=== PATIENT | male | born 1955 | race Two or more races ===

== ENCOUNTER 2019-04-18 11:34 | Inpatient (IN) | payer MEDICAID, SELFPAY ==
[~2019-04-18] VITALS: Ht 157.5 cm; Wt 105.2 kg
[~2019-04-18 11:34] MED LIST: CEPHALEXIN500 MG ORAL; KEFLEX500 MG ORAL; NKM
[2019-04-18 12:05] VITALS: BP 170/102
--- NOTE | 2019-04-18 12:05 | NUR ---
ED Nurse Note: pt walked in due to epigastric pain x 3 days. pt denies nvd, no chest pain. pt stated he is bloated and might have infection. pt noted to have bilateral leg edema, denies hx of chf. denies medical hx aside from htn. seen by ermd. pt able to give urine sample and was sent to lab, iv stater on the right ac using g 20 iv cath, blood drawn and was sent to lab. will continue to monitor.
[2019-04-18] MEDS ORDERED: Morphine Sulfate 4mg/ml Inj (IV USE ONLY) IVP ONE (12:15)
[2019-04-18] MEDS ORDERED: Isovue-300 100ml vial INJ PRN (12:15)
[2019-04-18 12:32] LABS: APPEARANCE,URINE CLEAR; BASOPHILS % (AUTO) 1.3 % (0.0-2.0); BILIRUBIN, URINE NEGATIVE (NEGATIVE); GLUCOSE, URINE (UA) NEGATIVE (NEGATIVE); HEMATOCRIT 34.4 % (42.0-52.0); HEMOGLOBIN 10.8 G/DL (14.2-18.0); KETONES,URINE NEGATIVE (NEGATIVE); LEUKOCYTE ESTERASE ,URINE NEGATIVE (NEGATIVE); LYMPHOCYTES % (AUTO) 22.6 % (20.0-45.0); MEAN CORPUSCULAR VOLUME 69 FL (80-99); MONOCYTES % (AUTO) 10.6 % (1.0-10.0); NEUTROPHILS % (AUTO) 62.5 % (45.0-75.0); NITRITE,URINE NEGATIVE (NEGATIVE); PH,URINE 6 (4.5-8.0); PLATELET COUNT 226 K/UL (150-450); PROTEIN,URINE 2+ (NEGATIVE); RED BLOOD COUNT 4.97 M/UL (4.70-6.10); UROBILINOGEN,URINE 4 MG/DL (0.0-1.0); WHITE BLOOD COUNT 8.5 K/UL (4.8-10.8)
[2019-04-18 12:39] LABS: ANION GAP 7 mmol/L (5-15); BLOOD UREA NITROGEN 18 mg/dL (7-18); CALCIUM 8.7 MG/DL (8.5-10.1); CARBON DIOXIDE 30 MMOL/L (21-32); CHLORIDE 101 MMOL/L (98-107); COLOR,URINE YELLOW; CREATININE 1.2 MG/DL (0.55-1.30); POTASSIUM 4.6 MMOL/L (3.5-5.1); SODIUM 138 MMOL/L (136-145)
[2019-04-18 12:42] LABS: AMMONIA 30 umol/L (11-32)
[2019-04-18 12:43] LABS: ALANINE AMINOTRANSFERASE 15 U/L (12-78); ALBUMIN 3.2 G/DL (3.4-5.0); ALBUMIN/GLOBULIN RATIO 0.7 (1.0-2.7); ALKALINE PHOSPHATASE 98 U/L (46-116); ASPARTATE AMINO TRANSFERASE 33 U/L (15-37); BILIRUBIN,TOTAL 0.8 MG/DL (0.2-1.0)
--- NOTE | 2019-04-18 12:57 | NUR ---
ED Nurse Note: pt went to ct with tech
--- NOTE | 2019-04-18 13:10 | NUR ---
ED Nurse Note: pt went back from ct with tech
--- NOTE | 2019-04-18 13:42 | Diagnostic Imaging Report ---
Indication: Abdominal pain Technique: Continuous helical transaxial imaging of the abdomen and pelvis was obtained from the lung bases to the pubic symphysis during intravenous contrast administration. Coronal 2-D reformats were also obtained. Study obtained in a Siemens sensation [address] Automatic Exposure Control was utilized. Total Dose length Product (DLP): 1566.[address] Dose Index Volume (CTDIvol): 30.43 mGy Comparison: None Findings: There is a small right pleural effusion. There is a moderate generalized prominence of the heart. There is a hiatal hernia. There is trace free fluid within the abdomen demonstrated. The appendix is normal. The gallbladder is ill-defined. No obvious gallstones on this exam. There is no biliary ductal dilatation identified. Pancreas is unremarkable. The spleen is normal in size and attenuation. The liver is normal in size and attenuation. There is no adrenal mass. There is perinephric stranding which is nonspecific. There is no hydronephrosis. There is no abscess. Generalized subcutaneous edema noted within the abdominal wall nonspecific. Aorta is calcified. There is no adrenal mass. Bowel gas pattern appears nonobstructive. There is a small umbilical hernia containing fat. Diverticula noted within the sigmoid and descending colon without definite evidence of diverticulitis. There is a pars interarticularis defect on the right side at L5. Narrowing of the L5-S1 disc with vacuum phenomena and mild L5 on S1 anterolisthesis noted. IMPRESSION: Slightly ill-defined gallbladder. No gallstone seen on this exam. Correlate clinically for cholecystitis. Trace free fluid within the abdomen. Normal appendix. Diverticulosis of the sigmoid and descending colon. No definite diverticulitis. Mild perinephric stranding nonspecific Tiny umbilical hernia containing fat. Small right pleural effusion. Generalized cardiomegaly. Atherosclerotic vascular disease Tiny left inguinal hernia containing fat. Grade 1 spondylolisthesis L5 on S1 with moderate degenerative disc disease and a unilateral right spondylolysis of L5. The CT scanner at [facility] is accredited by the [employer] and the scans are performed using dose optimization techniques as appropriate to a performed exam including Automatic Exposure control.
--- NOTE | 2019-04-18 13:45 | NUR ---
ED Nurse Note: pt vomitted, denies dizziness, ermd made aware and zofran given iv, will continue to monitor.
[2019-04-18] MEDS ORDERED: Piperacillin/Tazobactam 3.375 GM in NS 110 ML IVPB ONE (14:00)
[2019-04-18] MEDS ORDERED: ASPIRIN81 MG ORAL (14:50)
[2019-04-18 14:55] LABS: INR 1.3 (0.9-1.1)
[2019-04-18 15:00] VITALS: BP 169/84
--- NOTE | 2019-04-18 15:09 | Emergency Room Report ---
History of Present Illness General Chief Complaint: Abdominal Pain Source: Patient Present Illness HPI 63-year-old male presents ED for evaluation. Patient walked in complaining of abdominal pain which started 2 days ago. Pain is epigastric, sharp, 8 out of 10 , radiating to right upper quadrant. Notes nausea and vomiting. Denies fevers or chills. Denies chest pain. Whether aggravating relieving factors. Denies any other associated symptoms Allergies: Coded Allergies: No Known Allergies (Unverified , 04/17/14) Patient History Past Medical History: HTN Past Surgical History: none Pertinent Family History: none Social History: Denies: smoking, alcohol use, drug use Immunizations: UTD Reviewed Nursing Documentation: PMH: Agreed; PSxH: Agreed Nursing Documentation-PMH Past Medical History: No History, Except For Hx Cardiac Problems: Yes Hx Hypertension: Yes Review of Systems All Other Systems: negative except mentioned in HPI Physical Exam Vital Signs Date Time Temp Pulse Resp B/P (MAP) Pulse Ox O2 Delivery O2 Flow Rate FiO2 04/18/19 11:37 98.2 105 18 176/89 (118) 95 Sp02 EP Interpretation: reviewed, normal General Appearance: no apparent distress, alert, GCS 15, non-toxic Head: normocephalic, atraumatic Eyes: bilateral eye normal inspection, bilateral eye PERRL ENT: hearing grossly normal, normal pharynx, no angioedema, normal voice Neck: full range of motion, supple/symm/no masses Respiratory: chest non-tender, lungs clear, normal breath sounds, speaking full sentences Cardiovascular #1: regular rate, rhythm, no edema Cardiovascular #2: 2+ carotid (R), 2+ carotid (L), 2+ radial (R), 2+ radial (L) , 2+ dorsalis pedis (R), 2+ dorsalis pedis (L) Gastrointestinal: normal bowel sounds, soft, non-distended, no guarding, no rebound, tenderness Rectal: deferred Genitourinary: normal inspection, no CVA tenderness Musculoskeletal: back normal, gait/station normal, normal range of motion, non- tender Neurologic: alert, oriented x3, responsive, motor strength/tone normal, sensory intact, speech normal Psychiatric: judgement/insight normal, memory normal, mood/affect normal, no suicidal/homicidal ideation Reflexes: 3+ bicep (R), 3+ bicep (L), 3+ tricep (R), 3+ tricep (L), 3+ knee (R) , 3+ knee (L) Skin: normal color, no rash, warm/dry, well hydrated Lymphatic: no adenopathy Medical Decision Making Diagnostic Impression: Primary Impression: Cholecystitis ER Course Hospital Course 63-year-old M presents to ED with RUQ pain Differential diagnoses include: Appendicitis, cholecystitis, small bowel obstruction Clinical course Patient placed on stretcher. cafeteria monitor. After initial history and physical I ordered labs, IV fluids, UA, pain medication and CT Labs - no leukocytosis noted, Hb/Hct stable. electrolytes ok. CT A/P - concern for cholecysitis Antibiotics given. Case discussed with Dr. Ibrahim and he agreed to consult. Case discussed with Dr. Saunders and he agreed to accept the patient to his service for further care and support I feel this is a highly complex case requiring extensive working including EKG/ Rhythm strip, Xray/CT/US, Blood/urine lab work, repeat exams while in ED, and administration of strong opiates/narcotics for pain control, admission to hospital or close patient follow up. Diagnosis - cholecystitis Patient admitted to hospital in serious condition Labs Test 04/18/19 12:10 04/18/19 14:30 White Blood Count 8.5 K/UL (4.8-10.8) Red Blood Count 4.97 M/UL (4.70-6.10) Hemoglobin 10.8 G/DL (14.2-18.0) Hematocrit 34.4 % (42.0-52.0) Mean Corpuscular Volume 69 FL (80-99) Mean Corpuscular Hemoglobin 21.8 PG (27.0-31.0) Mean Corpuscular Hemoglobin Concent 31.5 G/DL (32.0-36.0) Red Cell Distribution Width 17.0 % (11.6-14.8) Platelet Count 226 K/UL (150-450) Mean Platelet Volume 7.1 FL (6.5-10.1) Neutrophils (%) (Auto) 62.5 % (45.0-75.0) Lymphocytes (%) (Auto) 22.6 % (20.0-45.0) Monocytes (%) (Auto) 10.6 % (1.0-10.0) Eosinophils (%) (Auto) 3.0 % (0.0-3.0) Basophils (%) (Auto) 1.3 % (0.0-2.0) Urine Color Yellow Urine Appearance Clear Urine pH 6 (4.5-8.0) Urine Specific [place] 1.010 (1.005-1.035) Urine Protein 2+ (NEGATIVE) Urine Glucose (UA) Negative (NEGATIVE) Urine Ketones Negative (NEGATIVE) Urine Blood 1+ (NEGATIVE) Urine Nitrite Negative (NEGATIVE) Urine Bilirubin Negative (NEGATIVE) Urine Urobilinogen 4 MG/DL (0.0-1.0) Urine Leukocyte Esterase Negative (NEGATIVE) Urine RBC 0-2 /HPF (0 - 0) Urine WBC 0 /HPF (0 - 0) Urine Squamous Epithelial Cells Occasional /LPF Urine Bacteria Occasional /HPF (NONE) Sodium Level 138 MMOL/L (136-145) Potassium Level 4.6 MMOL/L (3.5-5.1) Chloride Level 101 MMOL/L (98-107) Carbon Dioxide Level 30 MMOL/L (21-32) Anion Gap 7 mmol/L (5-15) Blood Urea Nitrogen 18 mg/dL (7-18) Creatinine 1.2 MG/DL (0.55-1.30) Estimat Glomerular Filtration Rate > 60 mL/min (>60) Glucose Level 167 MG/DL (74-106) Calcium Level 8.7 MG/DL (8.5-10.1) Total Bilirubin 0.8 MG/DL (0.2-1.0) Aspartate Amino Transf (AST/SGOT) 33 U/L (15-37) Alanine Aminotransferase (ALT/SGPT) 15 U/L (12-78) Alkaline Phosphatase 98 U/L (46-116) Ammonia 30 umol/L (11-32) Total Protein 7.7 G/DL (6.4-8.2) Albumin 3.2 G/DL (3.4-5.0) Globulin 4.5 g/dL Albumin/Globulin Ratio 0.7 (1.0-2.7) Lipase 114 U/L (73-393) Serum Alcohol < 3 mg/dL Prothrombin Time 13.2 SEC (9.30-11.50) Prothromb Time International Ratio 1.3 (0.9-1.1) Activated Partial Thromboplast Time 26 SEC (23-33) CT/MRI/US Diagnostic Results CT/MRI/US Diagnostic Results : Imaging Test Ordered: CT A/P Impression Slightly ill-defined gallbladder. No gallstone seen on this exam. Correlate clinically for cholecystitis. Trace free fluid within the abdomen. Normal appendix. Diverticulosis of the sigmoid and descending colon. No definite diverticulitis. Mild perinephric stranding nonspecific Tiny umbilical hernia containing fat. Small right pleural effusion. Generalized cardiomegaly. Atherosclerotic vascular disease Tiny left inguinal hernia containing fat. Grade 1 spondylolisthesis L5 on S1 with moderate degenerative disc disease and a unilateral right spondylolysis of L5. Last Vital Signs Date Time Temp Pulse Resp B/P (MAP) Pulse Ox O2 Delivery O2 Flow Rate FiO2 04/18/19 12:05 98.2 102 29 170/102 95 Status: improved Disposition: ADMITTED INPATIENT Condition: Serious Referrals: NOT CHOSEN IPA/,REFERRING (PCP) González Rich MD April 18, 2019 15:09
--- NOTE | 2019-04-18 15:10 | NUR ---
ED Nurse Note: called 4 east to give report, rn stated to call back after 10 mins.
--- NOTE | 2019-04-18 15:15 | NUR ---
ED Nurse Note: pt vomiting, ermd made aware, zofran given.
[2019-04-18 15:18] VITALS: BP 159/76
--- NOTE | 2019-04-18 15:30 | NUR ---
ED Nurse Note: attempted to call to give report and recieving rn is on another pt. advised to call after 10 minutes
--- NOTE | 2019-04-18 15:40 | NUR ---
ED Nurse Note: pt was admitted to the hospital and transfered by Chad DIAMOND, report was given to monica diamond.pt trasnfered with stable vs and with all belongings
--- NOTE | 2019-04-18 15:47 | NUR ---
DR YOUNG HAS BEEN NOTIFIED PATIENT IN ROOM 404-1 FOR CONSULT
[2019-04-18 16:30] VITALS: BP 158/104
[2019-04-18] MEDS: Morphine Sulfate 2mg/ml Inj(IV/IM USE ONLY) IVP PRN (17:14)
[2019-04-18] MEDS ORDERED: Pantoprazole Inj IVP SCH (17:15)
--- NOTE | 2019-04-18 17:45 | Consultation ---
DATE OF CONSULTATION: 04/18/2019 CONSULTING PHYSICIAN: Shayy Lee M.D. REFERRING PHYSICIAN: ER physician. REASON FOR CONSULTATION: Abdominal pain. HISTORY OF PRESENT ILLNESS: This is a 63-year-old male, who presented to emergency room complaining of abdominal pain for 3 days. Besides, he states that when he lays down he gets short of breath. The patient stated that the pain was on both flanks and now it has moved to epigastrium mainly above the umbilicus. He does not know the aggravating factors. He stated that since he has been in the hospital and since he had the CAT scan, he has developed nausea and vomiting. Apparently, he has had this pain before. PAST MEDICAL HISTORY: He denies allergies, asthma, diabetes, and renal diseases. He has a history of hypertension and cardiac murmur. SURGERIES: None. MEDICATIONS: Aspirin only. SOCIAL HISTORY: This is a 63-year-old male, who is and father of one child. 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 Denies smoking or drinking. REVIEW OF SYSTEMS: Noncontributory. PHYSICAL EXAMINATION: GENERAL: The patient appeared to be a well-developed and well-nourished, obese 63-year-old male, sitting in the bed with nasal cannula in place. HEENT: Head is normocephalic and atraumatic. Eyes, pupils are equal, round, and reactive to light. Mouth is clear. NECK: There is no palpable thyromegaly or adenopathy. CHEST: Appears very clear to auscultation and percussion. HEART: He has a grade 3/6 systolic murmur best heard at the precordial area. ABDOMEN: Very obese and protuberant. It seemed to be distended. There is mild tenderness at the mid epigastrium. There is no tenderness at the right upper quadrant. GENITAL: Deferred. EXTREMITIES: He has 2+ edema of both legs. LABORATORY DATA: CBC is normal. Chemistry is normal. CAT scan of the abdomen has shown hiatal hernia and cardiomegaly and trace ascites. Besides it has mentioned that the gallbladder is ill-defined, but there is apparently no stone. ASSESSMENT: 1. Congestive heart failure. 2. Hiatal hernia. 3. Abdominal pain, probably due to the hiatal hernia and hepatomegaly. RECOMMENDATIONS: At this time, I cannot see any signs of acute cholecystitis, but to make sure I have taken the liberty of coordinating an ultrasound of the gallbladder, but this patient requires stat Cardiology consultation for management of his CHF. Shayy Lee M.D. DR: MIRYAM JOB#: [id number] CC: GILDA
[2019-04-18] MEDS ORDERED: Metoclopramide 10mg/2ml Inj IVP PRN (18:15)
--- NOTE | 2019-04-18 19:03 | NUR ---
NURSE NOTES: Received pt from REGIONAL ADMINISTRATIVE ASSISTANT HAL. Pt is alert and orient x4. pt is in RA
--- NOTE | 2019-04-18 19:05 | NUR ---
NURSE NOTES: Received pt from EMERGENCY MANAGERDARA HONG at 1600. Pt is alert and orient x4. pt is in RA, no SOB or acute respiratory distress noted. pt has intact iv access RAC 20G is running well. pt is vomiting, Dr CABRERA notified, order noted and carried out. pt has bilateral swollen feet, Dr CABRERA notified and ordered OK to have SCDs. Dr MULLEN visited pt and he stated pt doesn't have cholecystitis, and asked for merchandise execution leader to visit pt and ordered EKG and ABD US, Dr CABRERA is aware about all Dr mullen stated and orders, and all orders noted and carried out. pt is aware he has to be NPO from mid night due to abd US. pt's daughter is in bed side and took home 120$ of pt's money and left 44$ for pt and signed the belonging paper. all needs attended, bed is locked and is in the lowest position, call light within easy reach. will continue to monitor. Addendum: 04/18/19 at 1948 by Wang Monique RN PT HAS LARGE AND DISTENDED ABD, DR MULLEN VISITED IT.
--- NOTE | 2019-04-18 19:38 | NUR ---
HAND-OFF: Report given to DARA THOMPSON. Endorsed to DONNA pt is NPO due to Abd US.
--- NOTE | 2019-04-18 19:52 | NUR ---
NURSE NOTES: Received patient in bed, awake, alert, oriented, on room air, speaks Korean and Upper Sorbian, no acute distress noted, VSS, afebrile. Patient oxygen sat is 83%, placed on oxygen 2 liters per min. Call light is within reach, bed is in low position, locked and alarm is on. Will continue to monitor for safety and comfort.
[2019-04-18 20:00] VITALS: BP 170/104
--- NOTE | 2019-04-18 20:57 | NUR ---
NURSE NOTES: Patient is transferred to telemetry floor 2 [facility], report is given to Marion DIAMOND, belongings list been signed and items accounted for.
[2019-04-18] MEDS: Piperacillin/Tazobactam 3.375 GM in NS 110 ML IVPB SCH (21:29)
--- NOTE | 2019-04-18 22:45 | History and Physical Report ---
DATE OF ADMISSION: 04/18/2019 CHIEF COMPLAINT: Abdominal pain. HISTORY OF PRESENT ILLNESS: The patient is a 63-year-old male. He has no past medical history. He presented with complaints of 3 days of worsening back and abdominal pain and right flank pain. The patient was well until several days prior to admission. He has had worsening progressive pain especially in the mid epigastric abdominal region. He denies any melena. No bright red blood per rectum. He has had some nausea and one episode of vomiting. He eventually presented to the emergency room. On evaluation here, he was afebrile. His white count was normal. LFTs were unremarkable. He had a CT scan that showed an ill-defined gallbladder. He is now being admitted for evaluation for possible cholecystitis. PAST MEDICAL HISTORY: None. PAST SURGICAL HISTORY: None. CURRENT MEDICATIONS: None. FAMILY HISTORY: None. SOCIAL HISTORY: The patient drinks socially. No drugs. REVIEW OF SYSTEMS: Negative except for abdominal pain. PHYSICAL EXAMINATION: VITAL SIGNS: Temperature 98, pulse 100, respirations 28, and blood pressure 169/84. GENERAL: The patient is well developed, in no apparent distress. HEART: Regular rate and rhythm. LUNGS: Clear. ABDOMEN: Soft, but distended. EXTREMITIES: Without clubbing, cyanosis, or edema. LABORATORY DATA: White count 8, hemoglobin 10, and platelets 226,000. Sodium 138, potassium 4.6, BUN 18, and creatinine 1.2. LFTs are unremarkable. Lipase was normal. UA was clear. CT of the abdomen showed ill-defined gallbladder diverticulosis, but no diverticulitis, mild perinephric stranding, and umbilical hernia containing fat. ASSESSMENT: This is a pleasant male with no past medical history admitted with complaints of abdominal pain possibly secondary to cholecystitis. He does not have a white count or fever. I doubt that he has cholecystitis. He is hypertensive. PLAN: 1. Surgical consultation. 2. Intravenous antibiotics. 3. We will keep NPO and hydrate. 4. Antiemetic pain medications as needed. 5. Defer surgery to the consulting surgeon if felt necessary. Chet Saunders M.D. DR: BELKIS JOB#: [id number] CC:
[2019-04-18] MEDS: HydrALAZINE 25mg tab ORAL PRN (23:33)
--- NOTE | 2019-04-19 03:30 | NUR ---
NURSE NOTES: Received report from DARA Schultz. Patient in bed asleep, showing no signs of acute distress. Respiration even and non labored on room air. No sob noted. IV line patent and intact. Bed in lowest position, wheels locked, and bed alarm on. Call light within reach. All needs attended and met will continue plan of care.
[2019-04-19 04:00] VITALS: BP 121/70
[2019-04-19] MEDS: Nitroglycerin 2% oint pkt TOPIC SCH ×3 (05:48→18:00)
[2019-04-19] MEDS: Piperacillin/Tazobactam 3.375 GM in NS 110 ML IVPB SCH ×3 (05:48→21:16)
--- NOTE | 2019-04-19 07:10 | NUR ---
HAND-OFF: Report given to DARA Rutledge.
--- NOTE | 2019-04-19 07:26 | NUR ---
NURSE NOTES: Pt in bed in low position, bed alarm on, SCDs on, pt denies pain, pt Ox4 Sammarinese speaker, IV intact and running ABX, call light at bedside, skin intact pt has BRP, no s/s of distress or sob noted. Pt NPO for ABD US.
[2019-04-19 08:00] VITALS: BP 133/81
[2019-04-19 08:03] LABS: ALANINE AMINOTRANSFERASE 11 U/L (12-78); ALBUMIN 3.1 G/DL (3.4-5.0); ALBUMIN/GLOBULIN RATIO 0.7 (1.0-2.7); ALKALINE PHOSPHATASE 86 U/L (46-116); ANION GAP 4 mmol/L (5-15); ASPARTATE AMINO TRANSFERASE 35 U/L (15-37); BILIRUBIN,TOTAL 0.7 MG/DL (0.2-1.0); BLOOD UREA NITROGEN 16 mg/dL (7-18); CALCIUM 8.6 MG/DL (8.5-10.1); CARBON DIOXIDE 32 MMOL/L (21-32); CHLORIDE 102 MMOL/L (98-107); CREATININE 1.3 MG/DL (0.55-1.30); POTASSIUM 4.4 MMOL/L (3.5-5.1); SODIUM 138 MMOL/L (136-145)
[2019-04-19] MEDS ORDERED: Aspirin Baby 81mg NG SCH (09:00)
--- NOTE | 2019-04-19 09:11 | NUR ---
CASE MANAGE REVIEW 63 Y/O MALE FROM HOME CAME TO [facility] ER CC:ABDOMINAL PAIN SI:CHEST PAIN . CHOLECYSTITIS . BILATERAL LEG EDEMA VS: BP 170/100, P 105, T 98.2, RR 29, SpO2 95 H&H 10.8/34.4, TROPONIN [address]:Slightly ill-defined gallbladder. No gallstone seen on this exam. IS:NS 500ml IV ZOFRAN 4mg IVP ZOSYN 110ml IVPB D5/ELECTROLYTES x1L IV PEPCID 20mg IVP ADMITTED TO TELE DCP: RETURN HOME
--- NOTE | 2019-04-19 09:14 | General Progress Note ---
Assessment/Plan Problem List: (1) CHF (congestive heart failure) ICD Codes: I50.9 - Heart failure, unspecified SNOMED: 87243352 (2) HTN (hypertension) ICD Codes: I10 - Essential (primary) hypertension SNOMED: 78309859 Status: stable Assessment/Plan: diuresis trop- trend lipid panel check a1c echo Subjective ROS Limited/Unobtainable: No Constitutional: Reports: weakness HEENT: Reports: no symptoms Cardiovascular: Reports: no symptoms Respiratory: Reports: no symptoms Gastrointestinal/Abdominal: Reports: no symptoms Genitourinary: Reports: no symptoms Neurologic/Psychiatric: Reports: no symptoms Endocrine: Reports: no symptoms Hematologic/Lymphatic: Reports: no symptoms Allergies: Coded Allergies: No Known Allergies (Unverified , 04/17/14) All Systems: reviewed and negative except above Subjective feel much better. no chest pain no sob. no more abd pain Objective Last 24 Hour Vital Signs Date Time Temp Pulse Resp B/P (MAP) Pulse Ox O2 Delivery O2 Flow Rate FiO2 04/19/19 08:09 Nasal Cannula 2.0 04/19/19 08:00 98.8 113 20 133/81 (98) 96 04/19/19 07:23 97 Nasal Cannula 2.0 28 04/19/19 05:48 121/70 04/19/19 04:00 99.1 98 18 121/70 (87) 94 04/19/19 04:00 99 04/19/19 00:00 98 04/18/19 23:33 170/104 04/18/19 21:00 Nasal Cannula 2.0 04/18/19 20:00 97.7 102 20 170/104 (126) 96 04/18/19 17:44 97.7 04/18/19 17:25 Room Air 04/18/19 16:30 97.7 104 20 158/104 (122) 94 04/18/19 15:40 98.0 96 28 159/76 98 Room Air 04/18/19 15:18 98.0 96 28 159/76 98 Room Air 04/18/19 15:00 98.0 100 28 169/84 98 Room Air 04/18/19 12:50 98.0 04/18/19 12:05 98.2 102 29 170/102 95 04/18/19 12:05 102 29 04/18/19 11:37 98.2 105 18 176/89 (118) 95 Intake and Output 04/18/19 04/19/19 18:59 06:59 Intake Total 1385 ml 210.0 ml Balance 1385 ml 210.0 ml Intake Oral 75 ml IV Total 1310 ml 210.0 ml # Voids 2 1 Laboratory Tests 04/18/19 12:10: White Blood Count 8.5, Red Blood Count 4.97, Hemoglobin 10.8L, Hematocrit 34.4L , Mean Corpuscular Volume 69L, Mean Corpuscular Hemoglobin 21.8L, Mean Corpuscular Hemoglobin Concent 31.5L, Red Cell Distribution Width 17.0H, Platelet Count 226, Mean Platelet Volume 7.1, Neutrophils (%) (Auto) 62.5, Lymphocytes (%) (Auto) 22.6, Monocytes (%) (Auto) 10.6H, Eosinophils (%) (Auto) 3.0, Basophils (%) (Auto) 1.3, Urine Color Yellow, Urine Appearance Clear, Urine pH 6, Urine Specific [place] 1.010, Urine Protein 2+H, Urine Glucose (UA) Negative, Urine Ketones Negative, Urine Blood 1+H, Urine Nitrite Negative, Urine Bilirubin Negative, Urine Urobilinogen 4H, Urine Leukocyte Esterase Negative, Urine RBC 0-2H, Urine WBC 0, Urine Squamous Epithelial Cells Occasional, Urine Bacteria Occasional, Sodium Level 138, Potassium Level 4.6, Chloride Level 101, Carbon Dioxide Level 30, Anion Gap 7, Blood Urea Nitrogen 18 , Creatinine 1.2, Estimat Glomerular Filtration Rate > 60, Glucose Level 167H, Calcium Level 8.7, Total Bilirubin 0.8, Aspartate Amino Transf (AST/SGOT) 33, Alanine Aminotransferase (ALT/SGPT) 15, Alkaline Phosphatase 98, Ammonia 30, Total Protein 7.7, Albumin 3.2L, Globulin 4.5, Albumin/Globulin Ratio 0.7L, Lipase 114, Serum Alcohol < 3 04/18/19 14:30: Prothrombin Time 13.2H, Prothromb Time International Ratio 1.3H, Activated Partial Thromboplast Time 26 04/19/19 06:02: Sodium Level 138, Potassium Level 4.4, Chloride Level 102, Carbon Dioxide Level 32, Anion Gap 4L, Blood Urea Nitrogen 16, Creatinine 1.3, Estimat Glomerular Filtration Rate 55.8, Glucose Level 128H, Calcium Level 8.6, Total Bilirubin 0.7 , Aspartate Amino Transf (AST/SGOT) 35, Alanine Aminotransferase (ALT/SGPT) 11L , Alkaline Phosphatase 86, Total Protein 7.7, Albumin 3.1L, Globulin 4.6, Albumin/Globulin Ratio 0.7L, Magnesium Level 1.7L, Troponin I 0.071H, Pro-B- Type Natriuretic Peptide 1765H Height (Feet): 5 Height (Inches): 2.00 Weight (Pounds): 205 General Appearance: WD/WN, alert Neck: supple Cardiovascular: normal rate, regular rhythm Respiratory/Chest: chest wall non-tender, lungs clear, normal breath sounds Abdomen: normal bowel sounds, non tender, soft, no organomegaly Edema: mild edema Neurologic: crown buffer II-XII grossly normal Chet Saunders MD April 19, 2019 09:14
[2019-04-19] MEDS: Lisinopril 20mg tab ORAL SCH (09:27)
[2019-04-19] MEDS: Pantoprazole Inj IVP SCH (09:28)
--- NOTE | 2019-04-19 11:25 | Diagnostic Imaging Report ---
Indication: Dyspnea Comparison: None A single view chest radiograph was obtained. Findings: Mild pulmonary vascular congestion suspected with cardiomegaly and a prominent central vessels. Bones are unremarkable. IMPRESSION: Suspected mild CHF
[2019-04-19 12:00] VITALS: BP 131/96
--- NOTE | 2019-04-19 12:25 | Diagnostic Imaging Report ---
Indication: Abdominal pain Technique: Grayscale and duplex Doppler imaging of the abdomen performed. Comparison: None Findings: The liver is unremarkable. Doppler interrogation of the main portal vein shows patency with hepatopedal, monophasic flow. There is no biliary ductal dilitation identified. The CBD measures 3.3 mm. There is mild gallbladder wall thickening. There are no gallstones or wall thickening identified. Sonographic pereira's sign was negative per technologist. The demonstrated part of the pancreas, aorta and IVC show no abnormalities although not well seen due to bowel gas. Both kidneys appear unremarkable. There is no hydronephrosis. The spleen is normal in size, contour and echogenicity. Trace ascites noted. There is a small right pleural effusion. IMPRESSION: Mild gallbladder wall thickening, nonspecific. Consider hypoproteinemia, hepatitis, acalculous cholecystitis. Pancreas and aorta not well seen. Minimal ascites. Small right pleural effusion
--- NOTE | 2019-04-19 13:35 | General Surgery Progress Note ---
General Surgery-Progress Note Objective Last 24 Hour Vital Signs Date Time Temp Pulse Resp B/P (MAP) Pulse Ox O2 Delivery O2 Flow Rate FiO2 04/19/19 12:00 98.4 76 20 131/96 (108) 97 04/19/19 09:27 133/81 04/19/19 08:09 Nasal Cannula 2.0 04/19/19 08:00 98.8 113 20 133/81 (98) 96 04/19/19 07:23 97 Nasal Cannula 2.0 28 04/19/19 05:48 121/70 04/19/19 04:00 99.1 98 18 121/70 (87) 94 04/19/19 04:00 99 04/19/19 00:00 98 04/18/19 23:33 170/104 04/18/19 21:00 Nasal Cannula 2.0 04/18/19 20:00 97.7 102 20 170/104 (126) 96 04/18/19 17:44 97.7 04/18/19 17:25 Room Air 04/18/19 16:30 97.7 104 20 158/104 (122) 94 04/18/19 15:40 98.0 96 28 159/76 98 Room Air 04/18/19 15:18 98.0 96 28 159/76 98 Room Air 04/18/19 15:00 98.0 100 28 169/84 98 Room Air I&O Intake and Output 04/18/19 04/19/19 19:00 07:00 Intake Total 1485 ml 110.0 ml Balance 1485 ml 110.0 ml Intake Oral 75 ml IV Total 1410 ml 110.0 ml # Voids 2 1 Cardiovascular: murmurs Respiratory: clear Abdomen: distended, non-tender, present bowel sounds Extremities: edema Laboratory Tests Test 04/18/19 14:30 04/19/19 06:02 04/19/19 09:50 Prothrombin Time 13.2 SEC (9.30-11.50) H Prothromb Time International Ratio 1.3 (0.9-1.1) H Activated Partial Thromboplast Time 26 SEC (23-33) Sodium Level 138 MMOL/L (136-145) Potassium Level 4.4 MMOL/L (3.5-5.1) Chloride Level 102 MMOL/L (98-107) Carbon Dioxide Level 32 MMOL/L (21-32) Anion Gap 4 mmol/L (5-15) L Blood Urea Nitrogen 16 mg/dL (7-18) Creatinine 1.3 MG/DL (0.55-1.30) Estimat Glomerular Filtration Rate 55.8 mL/min (>60) Glucose Level 128 MG/DL (74-106) H Calcium Level 8.6 MG/DL (8.5-10.1) Magnesium Level 1.7 MG/DL (1.8-2.4) L Total Bilirubin 0.7 MG/DL (0.2-1.0) Aspartate Amino Transf (AST/SGOT) 35 U/L (15-37) Alanine Aminotransferase (ALT/SGPT) 11 U/L (12-78) L Alkaline Phosphatase 86 U/L (46-116) Troponin I 0.071 ng/mL (0.000-0.056) Pro-B-Type Natriuretic Peptide 1765 pg/mL (0-125) H Total Protein 7.7 G/DL (6.4-8.2) Albumin 3.1 G/DL (3.4-5.0) L Globulin 4.6 g/dL Albumin/Globulin Ratio 0.7 (1.0-2.7) L Hemoglobin A1c 7.3 % (4.3-6.0) H Assessment Additional Comments CHF Plan Additional Comments He doesn`t have cholecystis not even gallstone. His was due to hiatal hernia or hepatomegaly. He does not require surgery at this time. Shayy Lee MD April 19, 2019 13:35
--- NOTE | 2019-04-19 14:58 | Cardiology Report ---
APPROVED REPORT EXAM: Two-dimensional and M-mode echocardiogram with Doppler and color Doppler. INDICATION Angina Pectoris M-Mode DIMENSIONS IVSd1.7 (0.7-1.1cm)Left Atrium (MM)5.9 (1.6-4.0cm) LVDd3.9 (3.5-5.6cm)Aortic Root3.0 (2.0-3.7cm) PWd2.0 (0.7-1.1cm)Aortic Cusp Exc.1.5 (1.5-2.0cm) IVSs2.1 cm LVDs2.1 (2.5-4.0cm) PWs2.6 cm Normal left ventricular chamber size, systolic function and wall motion. Left ventricular ejection fraction estimated to be 65-70 %. Moderate to severe left ventricular hypertrophy. Anterior Echo-free space, may be due to pericardial fat or effusion. Moderate to severe left atrial enlargement. Right cardiac chamber sizes are within normal limits. Focal aortic valve sclerosis with mildly reduced cusp excursion. Thickened mitral valve leaflets with normal excursion. Mitral annulus and aortic root calcification. Pulmonic valve not well visualized. Normal tricuspid valve structure. IVC dilated at 2.1 cm with physiologic collapse suggestive of increased RA pressure. A color flow and spectral Doppler study was performed and revealed: Trace aortic regurgitation. Peak aortic valve gradient of 19 mm Hg and a mean of 7 mmHg. Trace mitral regurgitation. Can not determine left ventricular diastolic function by mitral diastolic velocities due to atrial fibrillation. Trace to mild tricuspid regurgitation. Tricuspid systolic velocities suggests peak right ventricular systolic pressure of 30 mmHg.
[2019-04-19 16:00] VITALS: BP 91/58
--- NOTE | 2019-04-19 19:30 | NUR ---
NURSE NOTES: Received patient from Aamir DIAMOND. Patient awake in bed, talking on his cell phone. Patient is alert and oriented x4. On room air, no s/s of respiratory distress. Bed in low position, locked, call light within reach.
--- NOTE | 2019-04-19 19:32 | NUR ---
HAND-OFF: Report given to Emeterio Burgos.
[2019-04-19 20:00] VITALS: BP 125/68
--- NOTE | 2019-04-19 20:30 | NUR ---
NURSE NOTES: Patient has a temp of 100.4. Notified Dr. Saunders and received orders for tylenol 650mg po q 4 hrs prn.
--- NOTE | 2019-04-19 22:15 | NUR ---
NURSE NOTES: Notified PIPELINE that the tylenol is still not available in the pyxis.
[2019-04-20] VITALS: BP 133/69
[2019-04-20] MEDS: Morphine Sulfate 2mg/ml Inj(IV/IM USE ONLY) IVP PRN (03:09)
[2019-04-20 04:00] VITALS: BP 100/59
[2019-04-20] MEDS: Piperacillin/Tazobactam 3.375 GM in NS 110 ML IVPB SCH ×3 (05:00→21:35)
[2019-04-20] MEDS: Nitroglycerin 2% oint pkt TOPIC SCH ×3 (06:00→18:00)
--- NOTE | 2019-04-20 07:40 | NUR ---
NURSE NOTES: Report received from DARA Storm. Pt i bathroom for elimination. Noted pt ambulating steady. No SOB, no pain. AOx4. Respirations are even and unlabored on RA. RAC 20G running with IV Zosyn 3.375g patent and intact. Bed is at lowest position, brakes engaged, siderails x2, bed alarm on, and call light within reach. Pt is in stable condition at this time; will continue to monitor.
--- NOTE | 2019-04-20 07:49 | NUR ---
HAND-OFF: Report given to Min RN. Patient in stable condition, plan of care endorsed.
[2019-04-20 07:59] LABS: ALANINE AMINOTRANSFERASE 17 U/L (12-78); ALBUMIN 3.2 G/DL (3.4-5.0); ALBUMIN/GLOBULIN RATIO 0.8 (1.0-2.7); ALKALINE PHOSPHATASE 84 U/L (46-116); ANION GAP 3 mmol/L (5-15); ASPARTATE AMINO TRANSFERASE 33 U/L (15-37); BILIRUBIN,TOTAL 0.6 MG/DL (0.2-1.0); BLOOD UREA NITROGEN 23 mg/dL (7-18); CALCIUM 8.2 MG/DL (8.5-10.1); CARBON DIOXIDE 35 MMOL/L (21-32); CHLORIDE 103 MMOL/L (98-107); CREATININE 1.4 MG/DL (0.55-1.30); POTASSIUM 4.8 MMOL/L (3.5-5.1); SODIUM 140 MMOL/L (136-145)
[2019-04-20 08:00] VITALS: BP 129/67
--- NOTE | 2019-04-20 08:10 | NUR ---
NURSE NOTES: RN notified for critical lac results for elevated Troponin-I with 0.111. Pt c/o some pressure on chest and c/o Cough. Also pt hving fever with 101.[address] Saunders. And Dr. Soriano came and checked the patient. No new order noted at this time. Tylenol 650mg po given for fever. Will continue to monitor with current plan of care.
[2019-04-20] MEDS: Aspirin Baby 81mg ORAL SCH (08:23)
[2019-04-20] MEDS: Lisinopril 20mg tab ORAL SCH (08:24)
[2019-04-20] MEDS: Pantoprazole Inj IVP SCH (08:24)
--- NOTE | 2019-04-20 11:40 | General Progress Note ---
Assessment/Plan Problem List: (1) CHF (congestive heart failure) ICD Codes: I50.9 - Heart failure, unspecified SNOMED: 06359761 (2) HTN (hypertension) ICD Codes: I10 - Essential (primary) hypertension SNOMED: 25715101 Status: stable Assessment/Plan: diuresis trop- trend flu test abx monitor labs Subjective ROS Limited/Unobtainable: No Constitutional: Reports: fever, malaise, weakness HEENT: Reports: no symptoms Cardiovascular: Reports: no symptoms Respiratory: Reports: no symptoms Gastrointestinal/Abdominal: Reports: no symptoms Genitourinary: Reports: no symptoms Neurologic/Psychiatric: Reports: no symptoms Endocrine: Reports: no symptoms Hematologic/Lymphatic: Reports: no symptoms Allergies: Coded Allergies: No Known Allergies (Unverified , 04/17/14) All Systems: reviewed and negative except above Subjective +fever. feels like he has the flu. no cp/sob. no abd pain. severe lvf on echo. nml ef Objective Last 24 Hour Vital Signs Date Time Temp Pulse Resp B/P (MAP) Pulse Ox O2 Delivery O2 Flow Rate FiO2 04/20/19 09:00 Nasal Cannula 2.0 04/20/19 08:24 129/67 04/20/19 08:00 101.8 104 20 129/67 (87) 94 04/20/19 06:00 100/59 04/20/19 04:00 99.0 88 20 100/59 (73) 99 04/20/19 03:40 87 04/20/19 00:00 100.6 106 20 133/69 (90) 98 04/19/19 23:58 104 04/19/19 23:23 100.6 04/19/19 21:00 Nasal Cannula 2.0 04/19/19 20:00 100.4 92 24 125/68 (87) 92 04/19/19 19:40 101 04/19/19 18:00 91/58 04/19/19 16:00 99.0 99 20 91/58 (69) 95 04/19/19 15:43 106 04/19/19 13:47 131/96 04/19/19 12:00 98.4 76 20 131/96 (108) 97 Intake and Output 04/19/19 04/20/19 18:59 06:59 Intake Total 990 ml Balance 990 ml Intake Oral 990 ml # Voids 3 3 Laboratory Tests 04/20/19 05:27: Sodium Level 140, Potassium Level 4.8, Chloride Level 103, Carbon Dioxide Level 35H, Anion Gap 3L, Blood Urea Nitrogen 23H, Creatinine 1.4H, Estimat Glomerular Filtration Rate 51.2, Glucose Level 106, Calcium Level 8.2L, Total Bilirubin 0.6 , Aspartate Amino Transf (AST/SGOT) 33, Alanine Aminotransferase (ALT/SGPT) 17, Alkaline Phosphatase 84, Troponin I 0.111H, Total Protein 7.3, Albumin 3.2L, Globulin 4.1, Albumin/Globulin Ratio 0.8L Height (Feet): 5 Height (Inches): 2.00 Weight (Pounds): 205 Objective General Appearance: WD/WN, alert Neck: supple Cardiovascular: normal rate, regular rhythm Respiratory/Chest: chest wall non-tender, lungs clear, normal breath sounds Abdomen: normal bowel sounds, non tender, soft, no organomegaly Edema: mild edema Neurologic: load out supervisor II-XII grossly normal Chet Saunders MD April 20, 2019 11:40
[2019-04-20 12:00] VITALS: BP 118/64
[2019-04-20 16:00] VITALS: BP 118/71
--- NOTE | 2019-04-20 16:00 | NUR ---
NURSE NOTES: At 3:45pm pt c/o palpitation and noted A-fib on director banking. At 15:55, Noted 6 beats of V-tach on monitor. Pt denied palpitation. Dr. Saunders notified for V-tach and episode of palpitation and fever(101.4f). 650mg of Tylenol PRN given for fever. Cardiology consult with Dr. Bjorn key, Eliquis 5mg BID, mETOPROLOL 12.5mg Bid, Vancomycin for pharmacy to dose, IV MgSo4 2g ordered. Order read back and carried out
[2019-04-20] MEDS ORDERED: Metoprolol Tartrate 12.5mg TAB ORAL SCH (16:15)
--- NOTE | 2019-04-20 17:01 | NUR ---
CASE MANAGEMENT: REVIEW SI: CHEST PAIN . CHF T 101.0 HR 112 RR 20 BP 118/64 SAT 96% NC/2L IS: ELEQUIS PO BID VANCO IV X1 MAG SULFATE IV @ 100ML/HR ASA PO QD ZOSYN IV Q8HR MORPHINE IV Q4HR PRN TELEMETRY UNIT STATUS DCP: PATIENT IS FROM HOME
[2019-04-20] MEDS ORDERED: Vancomycin 1.5gm Premix IVPB ONE (18:00)
[2019-04-20] MEDS ORDERED: Vancomycin 750mg/NS 275ml IVPB SCH ×2 (18:00)
[2019-04-20] MEDS: Eliquis 5mg tablet ORAL SCH (18:01)
--- NOTE | 2019-04-20 19:36 | Cardiology Progress Note ---
Assessment/Plan Assessment/Plan The patient is seen and examined, full consult note will be dictated shortly. Objective Last 24 Hour Vital Signs Date Time Temp Pulse Resp B/P (MAP) Pulse Ox O2 Delivery O2 Flow Rate FiO2 04/20/19 18:00 118/64 04/20/19 16:25 112 118/64 04/20/19 16:00 100.2 85 20 118/71 (87) 96 04/20/19 16:00 97 04/20/19 12:00 99.7 95 20 118/64 (82) 96 04/20/19 12:00 118/64 04/20/19 12:00 112 04/20/19 09:00 Nasal Cannula 2.0 04/20/19 08:53 101.0 04/20/19 08:24 129/67 04/20/19 08:00 109 04/20/19 08:00 101.8 104 20 129/67 (87) 94 04/20/19 06:00 100/59 04/20/19 04:00 99.0 88 20 100/59 (73) 99 04/20/19 03:40 87 04/20/19 00:00 100.6 106 20 133/69 (90) 98 04/19/19 23:58 104 04/19/19 21:00 Nasal Cannula 2.0 04/19/19 20:00 100.4 92 24 125/68 (87) 92 04/19/19 19:40 101 Intake and Output 04/19/19 04/20/19 19:00 07:00 Intake Total 990 ml Balance 990 ml Intake Oral 990 ml # Voids 3 3 Laboratory Tests Test 04/20/19 05:27 Sodium Level 140 MMOL/L (136-145) Potassium Level 4.8 MMOL/L (3.5-5.1) Chloride Level 103 MMOL/L (98-107) Carbon Dioxide Level 35 MMOL/L (21-32) H Anion Gap 3 mmol/L (5-15) L Blood Urea Nitrogen 23 mg/dL (7-18) H Creatinine 1.4 MG/DL (0.55-1.30) H Estimat Glomerular Filtration Rate 51.2 mL/min (>60) Glucose Level 106 MG/DL (74-106) Calcium Level 8.2 MG/DL (8.5-10.1) L Total Bilirubin 0.6 MG/DL (0.2-1.0) Aspartate Amino Transf (AST/SGOT) 33 U/L (15-37) Alanine Aminotransferase (ALT/SGPT) 17 U/L (12-78) Alkaline Phosphatase 84 U/L (46-116) Troponin I 0.111 ng/mL (0.000-0.056) Total Protein 7.3 G/DL (6.4-8.2) Albumin 3.2 G/DL (3.4-5.0) L Globulin 4.1 g/dL Albumin/Globulin Ratio 0.8 (1.0-2.7) L Microbiology Date/Time Source Procedure Growth Status 04/20/19 13:55 Nasal Nares - Final Complete 04/20/19 13:55 Nasal Nares - Final Complete Harley Milan MD April 20, 2019 19:36
--- NOTE | 2019-04-20 19:45 | NUR ---
NURSE NOTES: Bjorn Reynolds came to reviewed the EKG and the records. Metoprolol increased to 25mg PO from this night ordered. Order read back and carried out.
--- NOTE | 2019-04-20 19:46 | NUR ---
HAND-OFF: Report given to Althea DIAMOND. Pt remains stable..
--- NOTE | 2019-04-20 19:54 | NUR ---
NURSE NOTES: Received report from DARA Montano. Patient is awake sitting chairfast; resting comfortably. No signs of acute distress noted; complains of some pain. Family member at bedside. On 2L nasal cannula. AOx4; able to make needs known. Ambulates with some assistance. Checked IV sites; patent and flushed. No erythema, bleeding, or infiltration noted. Bed at lowest position, brakes on, siderails up x3. Call light within reach. Will continue to monitor.
[2019-04-20 20:00] VITALS: BP 141/63
[2019-04-20] MEDS: Metoprolol 25mg tab ORAL SCH (21:35)
[2019-04-21] VITALS: BP 98/53
[2019-04-21] MEDS: Vancomycin 750mg/NS 275ml IVPB SCH ×6 (02:49→17:31)
[2019-04-21] MEDS: Morphine Sulfate 2mg/ml Inj(IV/IM USE ONLY) IVP PRN ×3 (02:50→20:46)
--- NOTE | 2019-04-21 03:05 | NUR ---
NURSE NOTES: Patient complaining of 9/10 pain on right thigh. Morphine 2mg IV PRN medication administered as ordered.
[2019-04-21 04:00] VITALS: BP 122/77
[2019-04-21] MEDS: Nitroglycerin 2% oint pkt TOPIC SCH ×3 (06:18→17:31)
[2019-04-21] MEDS: Piperacillin/Tazobactam 3.375 GM in NS 110 ML IVPB SCH ×3 (06:18→21:44)
--- NOTE | 2019-04-21 07:00 | NUR ---
HAND-OFF: Report given to DARA Montano. Patient is awake sitting on the edge of the bed; resting comfortably. In stable condition.
--- NOTE | 2019-04-21 07:05 | NUR ---
NURSE NOTES: Received report from Maria Del Carmen RN. Pt AOX4. Pt sitting in bed. c/o left pain in knee when walking. IV in Left hand 22G running with IV Zosyn and IV in RAC 20G intact SL. Bed in lowest position and locked. On alarm zone 1. No signs of distress noted. Denied chest pain or palpitation. On 2LPM O2 via NC. Denied SOB. will continue to plan of care.
[2019-04-21 07:22] LABS: BASOPHILS % (AUTO) 1.1 % (0.0-2.0); EOSINOPHILS % (AUTO) 3.8 % (0.0-3.0); HEMOGLOBIN 10.4 G/DL (14.2-18.0); LYMPHOCYTES % (AUTO) 19.5 % (20.0-45.0); MEAN CORPUSCULAR VOLUME 71 FL (80-99); MONOCYTES % (AUTO) 11.6 % (1.0-10.0); NEUTROPHILS % (AUTO) 64.1 % (45.0-75.0); PLATELET COUNT 227 K/UL (150-450); RED CELL DISTRIBUTION WIDTH 16.9 % (11.6-14.8); WHITE BLOOD COUNT 10.1 K/UL (4.8-10.8)
[2019-04-21 07:46] LABS: ALANINE AMINOTRANSFERASE 13 U/L (12-78); ALBUMIN 2.9 G/DL (3.4-5.0); ALBUMIN/GLOBULIN RATIO 0.6 (1.0-2.7); ALKALINE PHOSPHATASE 77 U/L (46-116); ANION GAP 3 mmol/L (5-15); ASPARTATE AMINO TRANSFERASE 30 U/L (15-37); BILIRUBIN,TOTAL 0.6 MG/DL (0.2-1.0); BLOOD UREA NITROGEN 24 mg/dL (7-18); CALCIUM 8.4 MG/DL (8.5-10.1); CARBON DIOXIDE 33 MMOL/L (21-32); CHLORIDE 101 MMOL/L (98-107); CREATININE 1.4 MG/DL (0.55-1.30); POTASSIUM 4.6 MMOL/L (3.5-5.1); SODIUM 137 MMOL/L (136-145)
[2019-04-21 08:00] VITALS: BP 150/75
[2019-04-21] MEDS ORDERED: Tubing IV Secondary IV ONE (08:05)
[2019-04-21] MEDS: Lisinopril 20mg tab ORAL SCH (08:38)
[2019-04-21] MEDS: Aspirin Baby 81mg ORAL SCH (08:38)
[2019-04-21] MEDS: Eliquis 5mg tablet ORAL SCH ×2 (08:38→17:31)
[2019-04-21] MEDS: Pantoprazole Inj IVP SCH (08:38)
[2019-04-21] MEDS: Metoprolol 25mg tab ORAL SCH ×2 (08:39→21:44)
--- NOTE | 2019-04-21 11:33 | General Progress Note ---
Assessment/Plan Problem List: (1) CHF (congestive heart failure) ICD Codes: I50.9 - Heart failure, unspecified SNOMED: 79242494 (2) HTN (hypertension) ICD Codes: I10 - Essential (primary) hypertension SNOMED: 48546820 Status: stable Assessment/Plan: diuresis trop- trend flu test abx monitor labs b-dinora eliquis follow up cultures Subjective ROS Limited/Unobtainable: No Constitutional: Reports: fever, malaise, weakness HEENT: Reports: no symptoms Cardiovascular: Reports: no symptoms Respiratory: Reports: cough Gastrointestinal/Abdominal: Reports: no symptoms Genitourinary: Reports: no symptoms Neurologic/Psychiatric: Reports: no symptoms Endocrine: Reports: no symptoms Hematologic/Lymphatic: Reports: no symptoms Allergies: Coded Allergies: No Known Allergies (Unverified , 04/17/14) All Systems: reviewed and negative except above Subjective c/o leg pain. remains in afib. no fever or chills. on iv abx. ua neg. cxr neg. cultures pending Objective Last 24 Hour Vital Signs Date Time Temp Pulse Resp B/P (MAP) Pulse Ox O2 Delivery O2 Flow Rate FiO2 04/21/19 09:00 Nasal Cannula 2.0 04/21/19 08:39 90 150/75 04/21/19 08:38 150/75 04/21/19 08:00 97 04/21/19 08:00 98.0 90 17 150/75 (100) 99 04/21/19 06:18 152/93 04/21/19 04:00 83 04/21/19 04:00 98.0 86 20 122/77 (92) 94 04/21/19 00:00 79 04/21/19 00:00 97.7 49 20 98/53 (68) 96 04/20/19 21:35 65 141/63 04/20/19 21:00 Nasal Cannula 2.0 04/20/19 20:00 98.0 65 20 141/63 (89) 97 04/20/19 20:00 81 04/20/19 18:00 118/64 04/20/19 16:25 112 118/64 04/20/19 16:00 100.2 85 20 118/71 (87) 96 04/20/19 16:00 97 04/20/19 12:00 99.7 95 20 118/64 (82) 96 04/20/19 12:00 118/64 04/20/19 12:00 112 Intake and Output 04/20/19 04/21/19 18:59 06:59 Intake Total 930 ml 710.0 ml Balance 930 ml 710.0 ml Intake Oral 930 ml 325 ml IV Total 385.0 ml # Voids 3 2 Laboratory Tests 04/21/19 06:55: White Blood Count 10.1, Red Blood Count 4.80, Hemoglobin 10.4L, Hematocrit 34.0L , Mean Corpuscular Volume 71L, Mean Corpuscular Hemoglobin 21.7L, Mean Corpuscular Hemoglobin Concent 30.7L, Red Cell Distribution Width 16.9H, Platelet Count 227, Mean Platelet Volume 7.3, Neutrophils (%) (Auto) 64.1, Lymphocytes (%) (Auto) 19.5L, Monocytes (%) (Auto) 11.6H, Eosinophils (%) (Auto ) 3.8H, Basophils (%) (Auto) 1.1, Sodium Level 137, Potassium Level 4.6, Chloride Level 101, Carbon Dioxide Level 33H, Anion Gap 3L, Blood Urea Nitrogen 24H, Creatinine 1.4H, Estimat Glomerular Filtration Rate 51.2, Glucose Level 127H, Calcium Level 8.4L, Total Bilirubin 0.6, Aspartate Amino Transf (AST/SGOT ) 30, Alanine Aminotransferase (ALT/SGPT) 13, Alkaline Phosphatase 77, Pro-B- Type Natriuretic Peptide 1287H, Total Protein 7.5, Albumin 2.9L, Globulin 4.6, Albumin/Globulin Ratio 0.6L Height (Feet): 5 Height (Inches): 2.00 Weight (Pounds): 205 Objective General Appearance: WD/WN, alert Neck: supple Cardiovascular: normal rate, regular rhythm Respiratory/Chest: chest wall non-tender, lungs clear, normal breath sounds Abdomen: normal bowel sounds, non tender, soft, no organomegaly Edema: mild edema Neurologic: eyeglass frame truer II-XII grossly normal Chet Saunders MD April 21, 2019 11:33
[2019-04-21 12:00] VITALS: BP 118/81
--- NOTE | 2019-04-21 13:00 | NUR ---
CASE MANAGEMENT: REVIEW SI: CHEST PAIN . CHF T 99.2 HR 49 RR 20 BP 152/93 SAT 94% NC/2L H/H 10.4/34.0 CO2 33 BUN 24 CR 1.4 BNP 1287 IS: VANCO IV Q8HR ELEQUIS PO BID ASA PO QD ZOSYN IV Q8HR MORPHINE IV Q4HR PRN TELEMETRY UNIT STATUS DCP: PATIENT IS FROM HOME
[2019-04-21 16:00] VITALS: BP 121/78
--- NOTE | 2019-04-21 19:20 | NUR ---
HAND-OFF: Report given to Althea DIAMOND. Pt remains stable.
--- NOTE | 2019-04-21 19:30 | Consultation ---
DATE OF CONSULTATION: 04/20/2019 CARDIOLOGY CONSULTATION REFERRING PHYSICIAN: Chet Saunders M.D. REASON FOR CONSULTATION: Management of atrial fibrillation. HISTORY OF PRESENT ILLNESS: The patient is a very unfortunate 63-year-old gentleman, who presents to the emergency department for evaluation of abdominal pain that has been going on for about two days. The pain apparently was epigastric, sharp, 8/10 with radiation to the right upper quadrant with associated nausea and vomiting. Upon arrival to the hospital, the patient denied any chest pain. He was however complaining of shortness of breath and bilateral lower extremity edema. His cardiovascular history is significant for history of atrial fibrillation as well as hypertension. At the time of arrival to this facility, blood pressure was 176/89 mmHg and heart rate was 105. His 12-lead electrocardiogram was significant for atrial fibrillation with rapid ventricular response. The patient was worked up for acute abdomen and was deemed not to be a candidate for surgery. Cardiology consultation was made for assessment and evaluation of cardiomegaly, which was evident on the chest x-ray with associated pulmonary edema, lower extremity edema as well as management of atrial fibrillation. PAST MEDICAL HISTORY: Atrial fibrillation and hypertension. PAST SURGICAL HISTORY: None. FAMILY HISTORY: No premature coronary artery disease in first-degree relatives. SOCIAL HISTORY: Denies any tobacco, alcohol, or illicit drug use. ALLERGIES: No known drug allergies. MEDICATIONS: List of home medications includes aspirin 81 mg p.o. daily and cephalexin 500 mg q.6 h. REVIEW OF SYSTEMS: HEENT: Denies any headache, diplopia, or blurred vision. CONSTITUTIONAL: Denies any fever, chills, night sweats, or weight loss. CARDIOVASCULAR: He complains of bilateral lower extremity edema. No chest pain. Positive for dyspnea on exertion. No PND or orthopnea. No syncope. PULMONARY: Denies any cough, hemoptysis, or wheezing. GASTROINTESTINAL: Abdominal pain as mentioned above with associated nausea and vomiting, but no GI bleed. GENITOURINARY: Denies any hematuria, dysuria, or incontinence. NEUROLOGIC: Denies any motor dysfunction, sensory deficit, or altered speech. PHYSICAL EXAMINATION: VITAL SIGNS: At the time of arrival to the hospital, blood pressure was 176/89 mmHg, heart rate was 105, respirations 18, temperature 98.2 degrees Fahrenheit, and O2 saturation 95% on room air. GENERAL: A very unfortunate 63-year-old gentleman, who is sitting in the chair, no acute respiratory distress. Alert and oriented x4. HEENT: Atraumatic and normocephalic. Anicteric. Pupils are equal, round, and reactive to light and accommodation. Extraocular muscles intact. NECK: JVP is elevated about 10 to 12 centimeter. No carotid bruit. Carotid upstroke is 2+ bilaterally. CVS: Normal S1 and S2. Irregularly irregular rhythm. A 2/6 mid systolic murmur in left sternal border. PMI is at fourth intercostal space in the midclavicular line. LUNGS: Bibasilar crackles and poor respiratory effort. ABDOMEN: Distended. No hepatosplenomegaly. Positive bowel sounds. EXTREMITIES: There is 2 to 3+ bilateral lower extremity edema. LABORATORY FINDINGS: At the time of arrival to the emergency department, white blood cells 8.5, hemoglobin 10.8, hematocrit 34.4%, and platelet count 226,000. Sodium was 138, potassium was 4.6, chloride 101, bicarbonate 30, BUN of 18, creatinine 1.2, glucose 167, and calcium is 8.7. Ammonia was 30. Lipase was 114. Serum alcohol was less than 3 milligram/deciliter. Troponin I was 0.11 and 0.071. ProBNP was 1765. Chest x-ray showed cardiomegaly with mild pulmonary vascular congestion consistent with mild congestive heart failure. A 2D echocardiography was reviewed and reveals normal LV systolic function with LVEF of about 65% to 70%, [id number] LVH, and [id number]-[id number] left atrial enlargement. The right ventricular systolic pressure measured at 30 mmHg and inability to assess diastolic function due to underlying atrial fibrillation. There is however right atrial pressure increased to just about 5 to 10 mmHg. ASSESSMENT AND PLAN: The patient is a very unfortunate 63-year-old gentleman, seen in Cardiology consultation. 1. Atrial fibrillation with rapid ventricular response. I would like to increase the patient's metoprolol to 25 mg twice daily. The patient will be continued on Apixaban 5 mg twice daily. 2. Most likely acute diastolic congestive heart failure due to combination of accelerated hypertension as well as atrial fibrillation. The patient requires to have high blood pressure control, control of the ventricular response with beta blockers. 3. Most likely chronic kidney disease. 4. Hypertensive heart disease with normal left ventricular ejection fraction. 5. Slight elevation of troponin I level in this patient could be due to acute diastolic heart failure. However, type 2 [id number] myocardial infarction cannot be ruled out. 6. Given the fact that the patient is asymptomatic, we will continue managing the patient's atrial fibrillation and heart failure. We will discuss with the patient regarding the prior ischemic workup. I would like to thank, Dr. Saunders, for allowing me to participate in the care of this patient. Harley Milan M.D. DR: Cristiane JOB#: [id number] CC:
--- NOTE | 2019-04-21 19:30 | NUR ---
NURSE NOTES: Received report from DARA Montano. Patient is awake sitting chairfast; resting comfortably. No signs of acute distress noted; complains pain on right knee. Daughter at bedside. On 2L nasal cannula. AOx4; able to make needs known. Ambulates with assistance. Checked IV sites; patent and flushed. No erythema, bleeding, or infiltration noted. Bed at lowest position, brakes on, siderails up x3. Call light within reach. Will continue to monitor.
[2019-04-21 20:00] VITALS: BP 145/64
--- NOTE | 2019-04-21 23:27 | Cardiology Progress Note ---
Assessment/Plan Assessment/Plan 1. Atrial fibrillation with controlled ventricular response. Optimize metoprolol to 50 bid, continue apixaban. 2. Acute diastolic congestive heart failure due to combination of accelerated hypertension, CKD as well as atrial fibrillation. Continue diuretics, metoprolol , daily creat check. 3. Chronic kidney disease. 4. Hypertensive heart disease with normal left ventricular ejection fraction. 5. Slight elevation of troponin I level in this patient could be due to heart failure. However, type 2 [id number] myocardial infarction cannot be ruled out. Subjective Subjective Atrial fibrillation at rate of 85. Objective Last 24 Hour Vital Signs Date Time Temp Pulse Resp B/P (MAP) Pulse Ox O2 Delivery O2 Flow Rate FiO2 04/21/19 21:44 85 145/64 04/21/19 20:00 98.0 85 20 145/64 (91) 96 04/21/19 17:31 121/78 04/21/19 16:00 98.7 96 17 121/78 (92) 99 04/21/19 16:00 78 04/21/19 12:05 118/81 04/21/19 12:00 99.2 102 17 118/81 (93) 99 04/21/19 12:00 84 04/21/19 09:00 Nasal Cannula 2.0 04/21/19 08:39 90 150/75 04/21/19 08:38 150/75 04/21/19 08:00 97 04/21/19 08:00 98.0 90 17 150/75 (100) 99 04/21/19 07:50 98 Nasal Cannula 2.0 28 04/21/19 06:18 152/93 04/21/19 04:00 83 04/21/19 04:00 98.0 86 20 122/77 (92) 94 04/21/19 00:00 79 04/21/19 00:00 97.7 49 20 98/53 (68) 96 Intake and Output 04/20/19 04/21/19 19:00 07:00 Intake Total 930 ml 729.3 ml Balance 930 ml 729.3 ml Intake Oral 930 ml 325 ml IV Total 404.3 ml # Voids 3 2 2D Echo: LVEF 70%, Mild LVH, Mod LAE, RVSP 30 mmHg, cannot assess diastolic fxn. Laboratory Tests Test 04/21/19 06:55 04/21/19 16:50 White Blood Count 10.1 K/UL (4.8-10.8) Red Blood Count 4.80 M/UL (4.70-6.10) Hemoglobin 10.4 G/DL (14.2-18.0) L Hematocrit 34.0 % (42.0-52.0) L Mean Corpuscular Volume 71 FL (80-99) L Mean Corpuscular Hemoglobin 21.7 PG (27.0-31.0) L Mean Corpuscular Hemoglobin Concent 30.7 G/DL (32.0-36.0) L Red Cell Distribution Width 16.9 % (11.6-14.8) H Platelet Count 227 K/UL (150-450) Mean Platelet Volume 7.3 FL (6.5-10.1) Neutrophils (%) (Auto) 64.1 % (45.0-75.0) Lymphocytes (%) (Auto) 19.5 % (20.0-45.0) L Monocytes (%) (Auto) 11.6 % (1.0-10.0) H Eosinophils (%) (Auto) 3.8 % (0.0-3.0) H Basophils (%) (Auto) 1.1 % (0.0-2.0) Sodium Level 137 MMOL/L (136-145) Potassium Level 4.6 MMOL/L (3.5-5.1) Chloride Level 101 MMOL/L (98-107) Carbon Dioxide Level 33 MMOL/L (21-32) H Anion Gap 3 mmol/L (5-15) L Blood Urea Nitrogen 24 mg/dL (7-18) H Creatinine 1.4 MG/DL (0.55-1.30) H Estimat Glomerular Filtration Rate 51.2 mL/min (>60) Glucose Level 127 MG/DL (74-106) H Calcium Level 8.4 MG/DL (8.5-10.1) L Total Bilirubin 0.6 MG/DL (0.2-1.0) Aspartate Amino Transf (AST/SGOT) 30 U/L (15-37) Alanine Aminotransferase (ALT/SGPT) 13 U/L (12-78) Alkaline Phosphatase 77 U/L (46-116) Pro-B-Type Natriuretic Peptide 1287 pg/mL (0-125) H Total Protein 7.5 G/DL (6.4-8.2) Albumin 2.9 G/DL (3.4-5.0) L Globulin 4.6 g/dL Albumin/Globulin Ratio 0.6 (1.0-2.7) L Thyroid Stimulating Hormone (TSH) 0.640 uiU/mL (0.358-3.740) Vancomycin Level Trough 17.8 ug/mL (5.0-12.0) H Microbiology Date/Time Source Procedure Growth Status 04/20/19 13:55 Nasal Nares - Final Complete 04/20/19 13:55 Nasal Nares - Final Complete Objective HEENT: Atraumatic and normocephalic. Anicteric. Pupils are equal, round, and reactive to light and accommodation. Extraocular muscles intact. NECK: JVP is elevated about 10 to 12 centimeter. No carotid bruit. Carotid upstroke is 2+ bilaterally. CVS: Normal S1 and S2. Irregularly irregular rhythm. A 2/6 mid systolic murmur in left sternal border. PMI is at fourth intercostal space in the midclavicular line. LUNGS: Bibasilar crackles and poor respiratory effort. ABDOMEN: Distended. No hepatosplenomegaly. Positive bowel sounds. EXTREMITIES: There is 2 to 3+ bilateral lower extremity edema. Harley Milan MD April 21, 2019 23:27
[2019-04-22] VITALS (7 sets, daily range): BP systolic 116–160; BP diastolic 55–80
[2019-04-22] MEDS: Vancomycin 750mg/NS 275ml IVPB SCH ×6 (01:10→18:21)
[2019-04-22] MEDS: Morphine Sulfate 2mg/ml Inj(IV/IM USE ONLY) IVP PRN ×5 (01:11→21:34)
[2019-04-22] MEDS: Piperacillin/Tazobactam 3.375 GM in NS 110 ML IVPB SCH ×3 (05:25→21:33)
[2019-04-22] MEDS: Nitroglycerin 2% oint pkt TOPIC SCH ×3 (06:50→16:59)
--- NOTE | 2019-04-22 07:12 | NUR ---
NURSE NOTES: Received report from Maria Del Carmen DIAMOND. Pt in bed and eating breakfast. Alert and oriented. IV in RAC 20G intact and patent SL. On 2LPM O2 via N/C. C/O pain in right knee. Paged Dr. Saunders for right knee pain. US guided arthrocentesis of right knee ordered and read back. Instructed the patient to use the bedside commode for now due to difficulty in walking for pain. Will continue to monitor with current plan of care.
--- NOTE | 2019-04-22 07:12 | NUR ---
HAND-OFF: Report given to DARA Montano. Patient is awake lying semi-silva's watching TV; resting comfortably. Endorsed to oncoming RN regarding patient's temperature of 102 orally and that Tylenol PRN was administered. In stable condition otherwise.
[2019-04-22] MEDS: Pantoprazole Inj IVP SCH (08:23)
[2019-04-22] MEDS: Eliquis 5mg tablet ORAL SCH ×2 (08:23→16:59)
[2019-04-22] MEDS: Aspirin Baby 81mg ORAL SCH (08:23)
[2019-04-22] MEDS: Lisinopril 20mg tab ORAL SCH (08:32)
--- NOTE | 2019-04-22 08:57 | General Progress Note ---
Assessment/Plan Problem List: (1) CHF (congestive heart failure) ICD Codes: I50.9 - Heart failure, unspecified SNOMED: 53709342 (2) HTN (hypertension) ICD Codes: I10 - Essential (primary) hypertension SNOMED: 54266862 Status: stable Assessment/Plan: diuresis abx follow up cultures check uric acid b-dinora increased add digoxin eliquis follow up cultures tap knee by IR tomorrow doubt septic knee Subjective ROS Limited/Unobtainable: No Constitutional: Reports: malaise, weakness HEENT: Reports: no symptoms Cardiovascular: Reports: no symptoms Respiratory: Reports: no symptoms Gastrointestinal/Abdominal: Reports: no symptoms Genitourinary: Reports: no symptoms Neurologic/Psychiatric: Reports: no symptoms Endocrine: Reports: no symptoms Hematologic/Lymphatic: Reports: no symptoms Allergies: Coded Allergies: No Known Allergies (Unverified , 04/17/14) All Systems: reviewed and negative except above Subjective right knee pain. has history of gout- same presentation in the past. + fevers- on multiple abx. remains in afib. no fever or chills. ua neg. cxr neg. cultures neg so far Objective Last 24 Hour Vital Signs Date Time Temp Pulse Resp B/P (MAP) Pulse Ox O2 Delivery O2 Flow Rate FiO2 04/22/19 08:32 157/80 04/22/19 08:23 92 157/80 04/22/19 08:00 100.2 115 20 124/69 (87) 90 04/22/19 07:19 100.2 04/22/19 06:50 157/80 04/22/19 04:00 98.0 95 20 116/55 (75) 95 04/22/19 04:00 92 04/22/19 00:00 100 04/22/19 00:00 99.4 101 20 119/71 (87) 92 04/21/19 21:44 85 145/64 04/21/19 21:00 Nasal Cannula 2.0 04/21/19 20:00 98.0 85 20 145/64 (91) 96 04/21/19 20:00 90 04/21/19 17:31 121/78 04/21/19 16:00 98.7 96 17 121/78 (92) 99 04/21/19 16:00 78 04/21/19 12:05 118/81 04/21/19 12:00 99.2 102 17 118/81 (93) 99 04/21/19 12:00 84 04/21/19 09:00 Nasal Cannula 2.0 Intake and Output 04/21/19 04/22/19 19:00 07:00 Intake Total 2100 ml 728.5 ml Output Total 250 ml Balance 2100 ml 478.5 ml Intake Oral 2100 ml 300 ml IV Total 428.5 ml Output Urine Total 250 ml # Voids 5 1 # Bowel Movements 3 Laboratory Tests 04/21/19 16:50: Vancomycin Level Trough 17.8H Height (Feet): 5 Height (Inches): 2.00 Weight (Pounds): 205 Objective General Appearance: WD/WN, alert Neck: supple Cardiovascular: normal rate, regular rhythm Respiratory/Chest: chest wall non-tender, lungs clear, normal breath sounds Abdomen: normal bowel sounds, non tender, soft, no organomegaly Edema: mild edema. + right knee effusion. 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
[2019-04-22] MEDS ORDERED: Metoprolol Tartrate 50mg tab ORAL SCH ×3 (09:00→21:00)
[2019-04-22 09:03] LABS: HEMATOCRIT 32.6 % (42.0-52.0); HEMOGLOBIN 9.9 G/DL (14.2-18.0); MEAN CORPUSCULAR VOLUME 70 FL (80-99); PLATELET COUNT 217 K/UL (150-450); RED BLOOD COUNT 4.64 M/UL (4.70-6.10); RED CELL DISTRIBUTION WIDTH 16.5 % (11.6-14.8); WHITE BLOOD COUNT 12.4 K/UL (4.8-10.8)
[2019-04-22] MEDS ORDERED: Metoprolol 25mg tab ORAL SCH (09:20)
[2019-04-22] MEDS: Digoxin 0.5mg/2ml Inj IVP SCH ×2 (09:23→09:55)
[2019-04-22] MEDS: dilTIAZem HCl 25mg/5ml Inj IVP SCH ×2 (09:25→09:54)
--- NOTE | 2019-04-22 09:42 | NUR ---
NURSE NOTES: 143/77, P [address] Saunders aware. Digoxin 0.125mg and cardizem 10mg IV ordered to continue to administer them now.
[2019-04-22 10:04] LABS: ALANINE AMINOTRANSFERASE 15 U/L (12-78); ALBUMIN 3.1 G/DL (3.4-5.0); ALBUMIN/GLOBULIN RATIO 0.8 (1.0-2.7); ALKALINE PHOSPHATASE 77 U/L (46-116); ANION GAP 8 mmol/L (5-15); ASPARTATE AMINO TRANSFERASE 29 U/L (15-37); BILIRUBIN,TOTAL 0.8 MG/DL (0.2-1.0); BLOOD UREA NITROGEN 22 mg/dL (7-18); CARBON DIOXIDE 29 MMOL/L (21-32); CHLORIDE 97 MMOL/L (98-107); CREATININE 1.4 MG/DL (0.55-1.30); POTASSIUM 4.2 MMOL/L (3.5-5.1); SODIUM 134 MMOL/L (136-145)
--- NOTE | 2019-04-22 19:13 | NUR ---
HAND-OFF: Report given to Maria Del Carmen DIAMOND. Pt remains stable..
--- NOTE | 2019-04-22 19:19 | NUR ---
NURSE NOTES: Received report from DARA Montano. Patient is awake sitting chairfast; resting comfortably. No signs of acute distress noted; complains of pain on right knee. Family members at bedside. On 2L nasal cannula. AOx4; able to make needs known. Ambulates with assistance. Checked IV site; patent and flushed. No erythema, bleeding, or infiltration noted. Bed at lowest position, brakes on, siderails up x3. Call light within reach. Will continue to monitor.
--- NOTE | 2019-04-22 22:02 | Cardiology Progress Note ---
Assessment/Plan Assessment/Plan 1. Atrial fibrillation with controlled ventricular response. Optimize metoprolol to 100 bid, continue apixaban. 2. Acute diastolic congestive heart failure due to combination of accelerated hypertension, CKD as well as atrial fibrillation. Continue diuretics and metoprolol, creat stable at 1.4. 3. Chronic kidney disease. 4. Hypertensive heart disease with normal left ventricular ejection fraction. 5. Slight elevation of troponin I level in this patient could be due to heart failure. However, type 2 [id number] myocardial infarction cannot be ruled out. Continue conservative management given no chest pain at this time. Subjective Subjective Atrial fibrillation at rate of 84. Objective Last 24 Hour Vital Signs Date Time Temp Pulse Resp B/P (MAP) Pulse Ox O2 Delivery O2 Flow Rate FiO2 04/22/19 21:33 84 141/80 04/22/19 17:29 100.1 04/22/19 16:59 141/80 04/22/19 16:00 84 04/22/19 16:00 100.9 77 20 141/80 (100) 99 04/22/19 12:17 132/61 04/22/19 12:00 98.6 71 20 132/61 (84) 99 04/22/19 12:00 76 04/22/19 10:05 99.8 75 20 141/70 (93) 98 04/22/19 09:55 102 04/22/19 09:54 102 143/77 04/22/19 09:26 122 157/80 04/22/19 09:00 Nasal Cannula 2.0 04/22/19 08:32 157/80 04/22/19 08:23 92 157/80 04/22/19 08:00 100.2 115 20 124/69 (87) 90 04/22/19 08:00 127 04/22/19 07:05 97 Nasal Cannula 2.0 28 04/22/19 06:50 157/80 04/22/19 04:00 98.0 95 20 116/55 (75) 95 04/22/19 04:00 92 04/22/19 00:00 100 04/22/19 00:00 99.4 101 20 119/71 (87) 92 Intake and Output 04/21/19 04/22/19 19:00 07:00 Intake Total 2100 ml 728.5 ml Output Total 250 ml Balance 2100 ml 478.5 ml Intake Oral 2100 ml 300 ml IV Total 428.5 ml Output Urine Total 250 ml # Voids 5 1 # Bowel Movements 3 2D Echo: LVEF 70%, Mild LVH, Mod LAE, RVSP 30 mmHg, cannot assess diastolic fxn. Laboratory Tests Test 04/22/19 08:56 04/22/19 15:14 White Blood Count 12.4 K/UL (4.8-10.8) H Red Blood Count 4.64 M/UL (4.70-6.10) L Hemoglobin 9.9 G/DL (14.2-18.0) L Hematocrit 32.6 % (42.0-52.0) L Mean Corpuscular Volume 70 FL (80-99) L Mean Corpuscular Hemoglobin 21.4 PG (27.0-31.0) L Mean Corpuscular Hemoglobin Concent 30.6 G/DL (32.0-36.0) L Red Cell Distribution Width 16.5 % (11.6-14.8) H Platelet Count 217 K/UL (150-450) Mean Platelet Volume 6.4 FL (6.5-10.1) L Neutrophils (%) (Auto) % (45.0-75.0) Lymphocytes (%) (Auto) % (20.0-45.0) Monocytes (%) (Auto) % (1.0-10.0) Eosinophils (%) (Auto) % (0.0-3.0) Basophils (%) (Auto) % (0.0-2.0) Differential Total Cells Counted 100 Neutrophils % (Manual) 86 % (45-75) H Lymphocytes % (Manual) 4 % (20-45) L Monocytes % (Manual) 10 % (1-10) Eosinophils % (Manual) 0 % (0-3) Basophils % (Manual) 0 % (0-2) Band Neutrophils 0 % (0-8) Platelet Estimate Adequate Platelet Morphology Normal Hypochromasia 2+ Anisocytosis 1+ Microcytosis 1+ Erythrocyte Sedimentation Rate 9 MM/HR (0-20) Sodium Level 134 MMOL/L (136-145) L Potassium Level 4.2 MMOL/L (3.5-5.1) Chloride Level 97 MMOL/L (98-107) L Carbon Dioxide Level 29 MMOL/L (21-32) Anion Gap 8 mmol/L (5-15) Blood Urea Nitrogen 22 mg/dL (7-18) H Creatinine 1.4 MG/DL (0.55-1.30) H Estimat Glomerular Filtration Rate 51.2 mL/min (>60) Glucose Level 243 MG/DL (74-106) #H Uric Acid 7.5 MG/DL (2.6-7.2) H Calcium Level 8.0 MG/DL (8.5-10.1) L Total Bilirubin 0.8 MG/DL (0.2-1.0) Aspartate Amino Transf (AST/SGOT) 29 U/L (15-37) Alanine Aminotransferase (ALT/SGPT) 15 U/L (12-78) Alkaline Phosphatase 77 U/L (46-116) Total Protein 7.2 G/DL (6.4-8.2) Albumin 3.1 G/DL (3.4-5.0) L Globulin 4.1 g/dL Albumin/Globulin Ratio 0.8 (1.0-2.7) L Vancomycin Level Trough 17.6 ug/mL (5.0-12.0) H Microbiology Date/Time Source Procedure Growth Status 04/20/19 17:35 Blood Blood Culture - Preliminary NO GROWTH AFTER 24 HOURS Resulted 04/20/19 17:19 Blood Blood Culture - Preliminary NO GROWTH AFTER 24 HOURS Resulted 04/20/19 13:55 Nasal Nares - Final Complete 04/20/19 13:55 Nasal Nares - Final Complete Objective HEENT: Atraumatic and normocephalic. Anicteric. Pupils are equal, round, and reactive to light and accommodation. Extraocular muscles intact. NECK: JVP is elevated about 10 to 12 centimeter. No carotid bruit. Carotid upstroke is 2+ bilaterally. CVS: Normal S1 and S2. Irregularly irregular rhythm. A 2/6 mid systolic murmur in left sternal border. PMI is at fourth intercostal space in the midclavicular line. LUNGS: Bibasilar crackles and poor respiratory effort. ABDOMEN: Distended. No hepatosplenomegaly. Positive bowel sounds. EXTREMITIES: There is 2 to 3+ bilateral lower extremity edema. Harley Milan MD April 22, 2019 22:02
[2019-04-23] VITALS: BP 153/69
[2019-04-23] MEDS: Morphine Sulfate 2mg/ml Inj(IV/IM USE ONLY) IVP PRN ×3 (02:01→22:41)
[2019-04-23] MEDS: Vancomycin 750mg/NS 275ml IVPB SCH ×6 (02:01→17:48)
[2019-04-23 04:00] VITALS: BP 123/65
--- NOTE | 2019-04-23 04:52 | NUR ---
NURSE NOTES: Patient is asleep lying semi-silva's; resting comfortably. No signs of acute distress or pain noted at this time.
[2019-04-23] MEDS: Piperacillin/Tazobactam 3.375 GM in NS 110 ML IVPB SCH ×3 (05:36→22:34)
[2019-04-23] MEDS: Nitroglycerin 2% oint pkt TOPIC SCH ×3 (05:36→17:46)
--- NOTE | 2019-04-23 07:05 | NUR ---
HAND-OFF: Report given to DARA Montano. Patient is awake sitting on the edge of the bed; resting comfortably. In stable condition. Endorsed to oncoming shift RN regarding patient's arthrocentesis procedure later today; verbalized understanding.
--- NOTE | 2019-04-23 07:10 | NUR ---
NURSE NOTES: Received report from Maria Del Carmen DIAMOND. AOX4. Patient in bed awake. No signs of distress noted. Pt c/o pain in right knee but he states that the pain got better than yesterday. IV site in RFA 20G running with IV Zosyn 3.375gm now intact patent. Bed in lowest position. 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 US guided arthrocentesis of right knee scheduled today and consent ready in the chart. Will continue to monitor with current plan of care.
[2019-04-23 08:00] VITALS: BP 125/88
--- NOTE | 2019-04-23 08:00 | General Progress Note ---
Assessment/Plan Problem List: (1) CHF (congestive heart failure) ICD Codes: I50.9 - Heart failure, unspecified SNOMED: 63998659 (2) HTN (hypertension) ICD Codes: I10 - Essential (primary) hypertension SNOMED: 32027714 Status: stable Assessment/Plan: diuresis abx follow up cultures check uric acid b-blockade digoxin eliquis follow up cultures tap knee by IR doubt septic knee Subjective ROS Limited/Unobtainable: No Constitutional: Reports: no symptoms HEENT: Reports: no symptoms Cardiovascular: Reports: no symptoms Respiratory: Reports: no symptoms Gastrointestinal/Abdominal: Reports: no symptoms Genitourinary: Reports: no symptoms Neurologic/Psychiatric: Reports: no symptoms Endocrine: Reports: no symptoms Hematologic/Lymphatic: Reports: no symptoms Allergies: Coded Allergies: No Known Allergies (Unverified , 04/17/14) All Systems: reviewed and negative except above Subjective right knee pain slightly better. afib rate controlled now. no fevers. on abx. cultures neg Objective Last 24 Hour Vital Signs Date Time Temp Pulse Resp B/P (MAP) Pulse Ox O2 Delivery O2 Flow Rate FiO2 04/23/19 05:36 123/65 04/23/19 04:00 98.3 82 16 123/65 (84) 100 04/23/19 04:00 70 04/23/19 00:00 72 04/23/19 00:00 98.6 91 19 153/69 (97) 98 04/22/19 21:33 84 141/80 04/22/19 21:00 Nasal Cannula 2.0 04/22/19 20:00 79 04/22/19 20:00 98.9 87 18 160/74 (102) 98 04/22/19 17:29 100.1 04/22/19 16:59 141/80 04/22/19 16:00 84 04/22/19 16:00 100.9 77 20 141/80 (100) 99 04/22/19 12:17 132/61 04/22/19 12:00 98.6 71 20 132/61 (84) 99 04/22/19 12:00 76 04/22/19 10:05 99.8 75 20 141/70 (93) 98 04/22/19 09:55 102 04/22/19 09:54 102 143/77 04/22/19 09:26 122 157/80 04/22/19 09:00 Nasal Cannula 2.0 04/22/19 08:32 157/80 04/22/19 08:23 92 157/80 04/22/19 08:00 100.2 115 20 124/69 (87) 90 04/22/19 08:00 127 Intake and Output 04/22/19 04/23/19 19:00 07:00 Intake Total 612.333 ml 1035.9 ml Balance 612.333 ml 1035.9 ml Intake Oral 280 ml 600 ml IV Total 332.333 ml 435.9 ml # Voids 1 # Bowel Movements 2 Laboratory Tests 04/22/19 08:56: White Blood Count 12.4H, Red Blood Count 4.64L, Hemoglobin 9.9L, Hematocrit 32.6L, Mean Corpuscular Volume 70L, Mean Corpuscular Hemoglobin 21.4L, Mean Corpuscular Hemoglobin Concent 30.6L, Red Cell Distribution Width 16.5H, Platelet Count 217, Mean Platelet Volume 6.4L, Neutrophils (%) (Auto) , Lymphocytes (%) (Auto) , Monocytes (%) (Auto) , Eosinophils (%) (Auto) , Basophils (%) (Auto) , Differential Total Cells Counted 100, Neutrophils % ( Manual) 86H, Lymphocytes % (Manual) 4L, Monocytes % (Manual) 10, Eosinophils % ( Manual) 0, Basophils % (Manual) 0, Band Neutrophils 0, Platelet Estimate Adequate, Platelet Morphology Normal, Hypochromasia 2+, Anisocytosis 1+, Microcytosis 1+, Erythrocyte Sedimentation Rate 9, Sodium Level 134L, Potassium Level 4.2, Chloride Level 97L, Carbon Dioxide Level 29, Anion Gap 8, Blood Urea Nitrogen 22H, Creatinine 1.4H, Estimat Glomerular Filtration Rate 51.2, Glucose Level 243#H, Uric Acid 7.5H, Calcium Level 8.0L, Total Bilirubin 0.8, Aspartate Amino Transf (AST/SGOT) 29, Alanine Aminotransferase (ALT/SGPT) 15, Alkaline Phosphatase 77, Total Protein 7.2, Albumin 3.1L, Globulin 4.1, Albumin/Globulin Ratio 0.8L 04/22/19 15:14: Vancomycin Level Trough 17.6H Height (Feet): 5 Height (Inches): 2.00 Weight (Pounds): 227 Objective General Appearance: WD/WN, alert Neck: supple Cardiovascular: normal rate, regular rhythm Respiratory/Chest: chest wall non-tender, lungs clear, normal breath sounds Abdomen: normal bowel sounds, non tender, soft, no organomegaly Edema: mild edema. + right knee effusion. 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
[2019-04-23] MEDS: Pantoprazole Inj IVP SCH (09:03)
[2019-04-23] MEDS: Aspirin Baby 81mg ORAL SCH (09:03)
[2019-04-23] MEDS: Digoxin 0.125mg tab ORAL SCH (09:04)
[2019-04-23] MEDS: Lisinopril 20mg tab ORAL SCH (09:04)
[2019-04-23] MEDS: Eliquis 5mg tablet ORAL SCH ×2 (09:04→17:46)
[2019-04-23 12:00] VITALS: BP 148/76
--- NOTE | 2019-04-23 12:41 | NUR ---
CASE MANAGEMENT:REVIEW 04/23/19 SI: CHF. HTN 98.0 68 20 148/76 98% ON 2L/NC IS: IV VANCOMYCIN Q8HRS IV ZOSYN Q8HRS IV LASIX QD DIGOXIN PO QD LOPRESSOR PO Q12 PREDNISONE PO QD ELIQUIS PO BID ASA PO QD LISINOPRIL PO QD NITRO BID 1" TID : TELEMETRY STATUS DCP: FROM HOME PLAN: TAP KNEE BY IR
--- NOTE | 2019-04-23 12:43 | Diagnostic Imaging Report ---
Indication: Pain Knee pain/trauma 3 views of the right knee were obtained. Findings: There is a joint effusion. There is subcutaneous edema. There is no fracture or malalignment identified. IMPRESSION: Joint effusion. Soft tissue swelling, nonspecific.
--- NOTE | 2019-04-23 13:12 | Diagnostic Imaging Report ---
EXAM: XR Chest, 1 View CLINICAL HISTORY: INFECT TECHNIQUE: Frontal view of the chest. COMPARISON: Chest radiograph on 04/18/2019 FINDINGS: Hardware: None. Lungs/pleura: Low lung volumes. Patchy opacities predominantly in the mid and lower lung zones, right greater than left. Probable small right pleural effusion. Pulmonary vasculature congestion. Heart/mediastinum: Stable enlargement of the cardiac silhouette. Soft tissues: Unremarkable. Bones: No acute fracture. Degenerative changes of the spine. Upper abdomen: Normal. IMPRESSION: Low lung volumes. Patchy opacities predominantly in the mid and lower lung zones, right greater than left. This may represent atelectasis in the left lung and atelectasis versus pneumonia in the right lung. Probable small right pleural effusion. Pulmonary vasculature congestion.
--- NOTE | 2019-04-23 15:25 | NUR ---
NURSE NOTES: Pt picked up by transporter for US guided arthrocentesis of right knee via bed with 2LPM o2
[2019-04-23 16:00] VITALS: BP 135/89
--- NOTE | 2019-04-23 16:10 | NUR ---
NURSE NOTES: Pt returned back from radiology dept for arthrocentesis. Per Fely from Ultrasound, doctor removed 50cc of synovial fluid from right knee.
--- NOTE | 2019-04-23 16:24 | Diagnostic Imaging Report ---
Indication: Right knee joint effusion Comparison: None Procedure: After indications, procedure, risks, potential complications and alternatives of the procedure were explained, written informed consent was obtained.The patient was brought to the ultrasound suite and placed upon the gurney. Ultrasound evaluation of the right knee was performed with the patient in a supine position. A site was selected and the skin overlying the right knee was prepped and draped in standard sterile fashion. 1% lidocaine was used anesthetize the skin and subcutaneous tissues. 18-gauge needle was advanced into the joint space above the patella and 50 cc of joint fluid was aspirated. Ultrasound images were saved and archived. Patient tolerated the procedure without immediate complication and was transferred to same day surgery for observation in good condition. Impression: Successful ultrasound-guided right knee joint aspiration. Fluid was sent for studies as requested.
--- NOTE | 2019-04-23 19:57 | NUR ---
HAND-OFF: Report given to Amanda DIAMOND. Pt remains stable..
--- NOTE | 2019-04-23 19:59 | NUR ---
NURSE NOTES: Recvd pt. Pt is awake and alert, AOX4. Pt is on NC @ 2L with no sign of sob or resp distress. Pt had arthrocentesis of right knee, band aid is c/d/i. Pt has right FA running only IV abx, otherwise SL. Bed in lowest position. Pt is Afib controlled on monitor, bed in lowest position, bed locked, call light within reach, will continue with plan of care.
[2019-04-23 20:00] VITALS: BP 151/70
[2019-04-24] VITALS: BP 143/64
--- NOTE | 2019-04-24 01:30 | Progress Note ---
DATE: 04/23/2019 CARDIOLOGY PROGRESS NOTE: SUBJECTIVE: The patient remains without chest pain. No shortness of breath. Remaining in atrial fibrillation with good rate control. Remains on apixaban for cardioembolic prophylaxis with no signs of bleeding. OBJECTIVE: VITAL SIGNS: Afebrile, T-max 100.1, blood pressure 123/65, pulse 82, respirations 16. LUNGS: Clear. CARDIAC: Irregularly irregular. Normal S1, S2. ABDOMEN: Soft. EXTREMITIES: With no edema. Right knee with small effusion. LABORATORY DATA: Reviewed from 04/22/2019. IMPRESSION: 1. Atrial fibrillation, rate controlled. 2. Acute diastolic congestive heart failure, compensated. 3. Accelerated hypertension now with improved blood pressure control. 4. Acute myocardial ischemia due to heart failure and blood pressure elevations, now recovered. 5. Right knee effusion, status post tap. PLAN: 1. Antimicrobials. 2. Full anticoagulation. 3. Titrate diuretic to maintenance dosing. 4. Maximize anti-failure regimen. 5. Continue digitalis and beta-dinora for rate control. Naveen Owens M.D. DR: DEWEY JOB#: [id number] CC:
[2019-04-24] MEDS: Vancomycin 750mg/NS 275ml IVPB SCH ×6 (02:47→18:27)
[2019-04-24 04:00] VITALS: BP 134/78
[2019-04-24] MEDS: Nitroglycerin 2% oint pkt TOPIC SCH ×3 (06:38→17:23)
[2019-04-24] MEDS: Piperacillin/Tazobactam 3.375 GM in NS 110 ML IVPB SCH ×3 (06:38→22:01)
[2019-04-24 06:48] LABS: HEMATOCRIT 33.9 % (42.0-52.0); HEMOGLOBIN 10.3 G/DL (14.2-18.0); LYMPHOCYTES % (AUTO) 11.9 % (20.0-45.0); MEAN CORPUSCULAR VOLUME 72 FL (80-99); MONOCYTES % (AUTO) 10.6 % (1.0-10.0); NEUTROPHILS % (AUTO) 76.5 % (45.0-75.0); PLATELET COUNT 258 K/UL (150-450); RED BLOOD COUNT 4.72 M/UL (4.70-6.10); RED CELL DISTRIBUTION WIDTH 16.7 % (11.6-14.8); WHITE BLOOD COUNT 11.3 K/UL (4.8-10.8)
--- NOTE | 2019-04-24 07:35 | NUR ---
NURSE NOTES: Received report from DARA Engle. The patient is having a breakfast on the bed without acute distress or shortness of breath. The patient still has right knee pain and was told that Morphine was given on the previous shift. Will monitor heart rate, condition of a-fib, and temperature. The patient's bed in the lowest position, call light in reach, and fall precaution reinforced. Will continue plan of care.
[2019-04-24 07:39] LABS: ALANINE AMINOTRANSFERASE 13 U/L (12-78); ALBUMIN 2.6 G/DL (3.4-5.0); ALBUMIN/GLOBULIN RATIO 0.6 (1.0-2.7); ALKALINE PHOSPHATASE 73 U/L (46-116); ANION GAP 4 mmol/L (5-15); ASPARTATE AMINO TRANSFERASE 24 U/L (15-37); BILIRUBIN,TOTAL 0.4 MG/DL (0.2-1.0); BLOOD UREA NITROGEN 27 mg/dL (7-18); CALCIUM 8.3 MG/DL (8.5-10.1); CARBON DIOXIDE 31 MMOL/L (21-32); CHLORIDE 102 MMOL/L (98-107); CREATININE 1.2 MG/DL (0.55-1.30); POTASSIUM 5.4 MMOL/L (3.5-5.1); SODIUM 137 MMOL/L (136-145)
[2019-04-24 08:00] VITALS: BP 135/71
[2019-04-24] MEDS ORDERED: Sodium Polystyrene Sulfonate 15gm Powder ORAL SCH (08:31)
--- NOTE | 2019-04-24 08:33 | NUR ---
NURSE NOTES: Notified Dr. Saunders regarding Potassium level of 5.4 and albumin of 2.6. Received order of Kayexalate 30mg for hyperkalemia. Based on DARA Engle's report, the patient will be closely monitored for right knee pain, temperature, heart rhythm, heart rate, and oxygen saturation.
--- NOTE | 2019-04-24 08:36 | General Progress Note ---
Assessment/Plan Problem List: (1) CHF (congestive heart failure) ICD Codes: I50.9 - Heart failure, unspecified SNOMED: 82522709 (2) HTN (hypertension) ICD Codes: I10 - Essential (primary) hypertension SNOMED: 87539302 Status: stable, progressing Assessment/Plan: diuresis abx follow up cultures check uric acid b-blockade digoxin eliquis kayexylate x 1. dc lisinipril- change to losartan follow up cultures from knee doubt septic knee Subjective ROS Limited/Unobtainable: No Constitutional: Reports: malaise, weakness HEENT: Reports: no symptoms Cardiovascular: Reports: no symptoms Respiratory: Reports: no symptoms Gastrointestinal/Abdominal: Reports: no symptoms Genitourinary: Reports: no symptoms Neurologic/Psychiatric: Reports: no symptoms Endocrine: Reports: no symptoms Hematologic/Lymphatic: Reports: no symptoms Allergies: Coded Allergies: No Known Allergies (Unverified , 04/17/14) All Systems: reviewed and negative except above Subjective still with right knee pain slightly better. afib rate controlled now. no fevers. on abx. cultures neg. had arthrocentesis Objective Last 24 Hour Vital Signs Date Time Temp Pulse Resp B/P (MAP) Pulse Ox O2 Delivery O2 Flow Rate FiO2 04/24/19 06:38 134/78 04/24/19 04:00 97.8 74 20 134/78 (96) 98 04/24/19 04:00 67 04/24/19 00:00 79 04/24/19 00:00 98.2 82 20 143/64 (90) 98 04/23/19 23:11 97.8 04/23/19 22:34 78 151/70 04/23/19 21:00 Nasal Cannula 2.0 04/23/19 20:00 97.8 68 20 151/70 (97) 99 04/23/19 20:00 78 04/23/19 17:46 135/89 04/23/19 17:00 99.1 04/23/19 16:05 97 Nasal Cannula 2.0 28 04/23/19 16:00 79 04/23/19 16:00 99.6 75 20 135/89 (104) 97 04/23/19 12:51 148/76 04/23/19 12:00 67 04/23/19 12:00 98.0 68 20 148/76 (100) 98 04/23/19 09:04 82 125/88 04/23/19 09:04 82 04/23/19 09:04 125/88 04/23/19 09:00 Nasal Cannula 2.0 Intake and Output 04/23/19 04/24/19 19:00 07:00 Intake Total 360 ml 450 ml Balance 360 ml 450 ml Intake Oral 360 ml 450 ml # Voids 3 # Bowel Movements 1 Laboratory Tests 04/24/19 06:33: White Blood Count 11.3H, Red Blood Count 4.72, Hemoglobin 10.3L, Hematocrit 33.9L, Mean Corpuscular Volume 72L, Mean Corpuscular Hemoglobin 21.9L, Mean Corpuscular Hemoglobin Concent 30.5L, Red Cell Distribution Width 16.7H, Platelet Count 258, Mean Platelet Volume 8.0, Neutrophils (%) (Auto) 76.5H, Lymphocytes (%) (Auto) 11.9L, Monocytes (%) (Auto) 10.6H, Eosinophils (%) (Auto ) 0.0, Basophils (%) (Auto) 1.0, Sodium Level 137, Potassium Level 5.4H, Chloride Level 102, Carbon Dioxide Level 31, Anion Gap 4L, Blood Urea Nitrogen 27H, Creatinine 1.2, Estimat Glomerular Filtration Rate > 60, Glucose Level 111H , Calcium Level 8.3L, Magnesium Level 1.9, Total Bilirubin 0.4, Aspartate Amino Transf (AST/SGOT) 24, Alanine Aminotransferase (ALT/SGPT) 13, Alkaline Phosphatase 73, Troponin I 0.027, Pro-B-Type Natriuretic Peptide 2941H, Total Protein 6.9, Albumin 2.6L, Globulin 4.3, Albumin/Globulin Ratio 0.6L Height (Feet): 5 Height (Inches): 2.00 Weight (Pounds): 233 Objective General Appearance: WD/WN, alert Neck: supple Cardiovascular: normal rate, regular rhythm Respiratory/Chest: chest wall non-tender, lungs clear, normal breath sounds Abdomen: normal bowel sounds, non tender, soft, no organomegaly Edema: mild edema. + right knee effusion. 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
[2019-04-24] MEDS ORDERED: Losartan 50mg tab ORAL SCH (09:00)
[2019-04-24] MEDS: Aspirin Baby 81mg ORAL SCH (09:56)
[2019-04-24] MEDS: Pantoprazole Inj IVP SCH (09:56)
[2019-04-24] MEDS: Eliquis 5mg tablet ORAL SCH ×2 (09:57→17:22)
[2019-04-24] MEDS: Digoxin 0.125mg tab ORAL SCH (09:57)
[2019-04-24] MEDS: Morphine Sulfate 2mg/ml Inj(IV/IM USE ONLY) IVP PRN (10:13)
[2019-04-24 12:00] VITALS: BP 134/73
--- NOTE | 2019-04-24 12:32 | NUR ---
RD ASSESSMENT & RECOMMENDATIONS SEE CARE ACTIVITY FOR COMPLETE ASSESSMENT DAILY ESTIMATED NEEDS: Needs based on CHF, Obesity/ 66kg abw 25-28 kcals/kg 8576-0227 total kcals 1-1.5 g protein/kg 66-99 g total protein 20-22 mL/kg 4275-3184 total fluid mLs NUTRITION DIAGNOSIS: * Altered nutrition related lab values R/T CHF, clinical condition, diabetes as evidenced by elev K (5.4), elev BNP (2941), elev BGs (111 243), elev A1C of 7.3. 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 CURRENT DIET:[facility] MED PO DIET RECOMMENDATIONS: CARDIAC, CCHO MED ADDITIONAL RECOMMENDATIONS: * Daily standing wt for accuracy * Rec accucheck w/ SSI- A1C of 7.3 * Monitor lytes closely w/ lasix, replete as needed * Monitor K closely, need for diet restriction (K=5.4) * Diet change as above
[2019-04-24 16:00] VITALS: BP 140/79
--- NOTE | 2019-04-24 16:07 | NUR ---
NURSE NOTES: Domo the tele monitoring alarm field technician notified 7 beats of v-tach episode on 1607. Assessed the patient but denies of chest pain, shortness of breath, acute dizziness, or vomiting. Notified to Dr. Owens and Dr. Milan about 7 beats of v-tach episode without acute distress. No new order per Dr. Owens. Will closely monitor the patient.
--- NOTE | 2019-04-24 17:16 | NUR ---
CASE MANAGEMENT:REVIEW 04/24/19 SI: CHF. HTN S/P RT KNEE ASPIRATION 98.6 73 20 140/79 97% ON RA IS: IV VANCOMYCIN Q8HRS IV ZOSYN Q8HRS IV LASIX QD DIGOXIN PO QD LOPRESSOR PO Q12 PREDNISONE PO QD ELIQUIS PO BID ASA PO QD LISINOPRIL PO QD NITRO BID 1" TID : TELEMETRY STATUS DCP: FROM HOME
--- NOTE | 2019-04-24 19:20 | NUR ---
HAND-OFF: Report given to DARA Murphy. The patient is resting on the bed without acute distress or shortness of breath. The patient's bed in the lowest position, call light in reach, and fall precaution reinforced. Endorsed plan of care.
--- NOTE | 2019-04-24 19:30 | NUR ---
NURSE NOTES: Received report from DARA Ortega. Pt is awake and resting in bed. In no acute distress. IV line intact and patent. Family is at bedside. Bed in lowest position, call light within reach. Will continue plan of care.
[2019-04-24 20:00] VITALS: BP 144/65
[2019-04-25] VITALS: BP 147/80
[2019-04-25] MEDS: Morphine Sulfate 2mg/ml Inj(IV/IM USE ONLY) IVP PRN ×2 (00:09→04:10)
[2019-04-25] MEDS: Vancomycin 750mg/NS 275ml IVPB SCH ×6 (02:22→19:21)
[2019-04-25 04:00] VITALS: BP 143/73
[2019-04-25] MEDS: Piperacillin/Tazobactam 3.375 GM in NS 110 ML IVPB SCH ×3 (05:57→21:31)
[2019-04-25 07:42] LABS: ANION GAP 3 mmol/L (5-15); BLOOD UREA NITROGEN 29 mg/dL (7-18); CALCIUM 8.8 MG/DL (8.5-10.1); CARBON DIOXIDE 35 MMOL/L (21-32); CHLORIDE 105 MMOL/L (98-107); CREATININE 1.3 MG/DL (0.55-1.30); SODIUM 143 MMOL/L (136-145)
--- NOTE | 2019-04-25 07:45 | NUR ---
HAND-OFF: Report given to DARA Varela.
--- NOTE | 2019-04-25 07:48 | NUR ---
NURSE NOTES: Received report from Jeffrey/RN, Patient is alert and oriented, eating breakfast on bed, No acute distress/SOB noted at this time. Bed in low position and locked, Call light within reach. Will continue plan of care.
[2019-04-25 08:00] VITALS: BP 160/87
[2019-04-25] MEDS: Losartan 50mg tab ORAL SCH (08:29)
[2019-04-25] MEDS: Aspirin Baby 81mg ORAL SCH (08:29)
[2019-04-25] MEDS: Eliquis 5mg tablet ORAL SCH ×2 (08:30→19:20)
[2019-04-25] MEDS: Digoxin 0.125mg tab ORAL SCH (08:30)
[2019-04-25 12:00] VITALS: BP 141/94
--- NOTE | 2019-04-25 12:19 | Diagnostic Imaging Report ---
Indication: Cough Technique: 2 views of the chest Comparison: One view chest 04/21/2019 Findings: The heart remains enlarged. There is bilateral interstitial edema again demonstrated. There is probably a small right pleural effusion. Airspace opacities previously demonstrated at the right middle lower lung resolved, however. Impression: Resolved right lateral basilar airspace opacities, since prior study of 04/21/2019 Persistent cardiomegaly, interstitial congestion, and right-sided pleural effusion
--- NOTE | 2019-04-25 13:21 | NUR ---
CASE MANAGEMENT:REVIEW 04/25/19 SI: CHF. RT KNEE EFFUSION 98.3 80 20 160/87 94% ON RA BNP+4036 IS: IV VANCOMYCIN Q8HRS IV ZOSYN Q8HRS COZAAR PO QD DIGOXIN PO QD LOPRESSOR PO Q12 IV LASIX QD PREDNISONE PO QD ELIQUIS PO BID ASA PO QD IV MORPHINE Q4HRS PRN : TELEMETRY STATUS
[2019-04-25] MEDS: HydrALAZINE 25mg tab ORAL PRN (15:46)
[2019-04-25 16:00] VITALS: BP 168/97
[2019-04-25 20:00] VITALS: BP 186/93
--- NOTE | 2019-04-25 20:20 | NUR ---
HAND-OFF: Report given to Jannette/RN, Endorsed plan of care..
--- NOTE | 2019-04-25 21:52 | NUR ---
NURSE NOTES: PATIENT REPORTING PAIN ON URINATION. DR. CABRERA MADE AWARE. ORDERED UA AND C/S. WILL CARRY OUT ORDER.
--- NOTE | 2019-04-25 22:30 | Progress Note ---
DATE: 04/25/2019 CARDIOLOGY PROGRESS NOTE SUBJECTIVE: The patient still has shortness of breath. Chest x-ray yesterday revealed no improvement in his heart failure and pleural effusion. The patient's elevated potassium was corrected yesterday with Kayexalate. OBJECTIVE: VITAL SIGNS: Blood pressure 164/94, pulse 78, and respirations 18. LUNGS: Diminished breath sounds. HEART: Irregularly irregular rhythm. Normal S1, S2. A 1/6 systolic apical murmur. ABDOMEN: Soft. EXTREMITIES: Trace edema. IMPRESSION: 1. Atrial fibrillation. 2. Hypertensive heart disease. 3. Pleural effusion. 4. Acute on chronic diastolic congestive heart failure. PLAN: 1. Additional diuresis. 2. Advancing antihypertensives. 3. Continuing anticoagulation. 4. Follow up laboratory studies. 5. Not stable for discharge. Naveen Owens M.D. DR: WOLFGANG JOB#: [id number] CC:
--- NOTE | 2019-04-25 23:30 | NUR ---
NURSE NOTES: PATIENT RESTING IN BED, DAUGHTER AT BEDSIDE. FALL PRECAUTIONS IN PLACE: CALL LIGHT, BEDSIDE TABLE, URINAL AND WALKER WITHIN REACH, BED IN LOW POSITION AND BED ALARM ON. URINE SPECIMEN SENT TO LAB.
[2019-04-25 23:31] LABS: APPEARANCE,URINE CLEAR; BILIRUBIN, URINE NEGATIVE (NEGATIVE); COLOR,URINE PALE YELLOW; GLUCOSE, URINE (UA) NEGATIVE (NEGATIVE); KETONES,URINE NEGATIVE (NEGATIVE); LEUKOCYTE ESTERASE ,URINE 1+ (NEGATIVE); NITRITE,URINE NEGATIVE (NEGATIVE); PH,URINE 6 (4.5-8.0); PROTEIN,URINE NEGATIVE (NEGATIVE); UROBILINOGEN,URINE NORMAL MG/DL (0.0-1.0)
[2019-04-26] VITALS: BP 157/54
[2019-04-26] MEDS: Vancomycin 750mg/NS 275ml IVPB SCH ×6 (02:58→21:14)
[2019-04-26 04:00] VITALS: BP 99/60
[2019-04-26] MEDS: Piperacillin/Tazobactam 3.375 GM in NS 110 ML IVPB SCH ×4 (05:44→23:38)
[2019-04-26 06:20] LABS: EOSINOPHILS % (AUTO) 0.1 % (0.0-3.0); HEMATOCRIT 36.7 % (42.0-52.0); HEMOGLOBIN 10.9 G/DL (14.2-18.0); LYMPHOCYTES % (AUTO) 14.6 % (20.0-45.0); MEAN CORPUSCULAR VOLUME 72 FL (80-99); MONOCYTES % (AUTO) 10.6 % (1.0-10.0); NEUTROPHILS % (AUTO) 73.7 % (45.0-75.0); PLATELET COUNT 273 K/UL (150-450); RED CELL DISTRIBUTION WIDTH 16.9 % (11.6-14.8); WHITE BLOOD COUNT 13.8 K/UL (4.8-10.8)
[2019-04-26 06:56] LABS: ALANINE AMINOTRANSFERASE 16 U/L (12-78); ALBUMIN 2.7 G/DL (3.4-5.0); ALBUMIN/GLOBULIN RATIO 0.6 (1.0-2.7); ALKALINE PHOSPHATASE 82 U/L (46-116); ANION GAP 2 mmol/L (5-15); ASPARTATE AMINO TRANSFERASE 33 U/L (15-37); BILIRUBIN,TOTAL 0.5 MG/DL (0.2-1.0); BLOOD UREA NITROGEN 33 mg/dL (7-18); CARBON DIOXIDE 37 MMOL/L (21-32); CHLORIDE 103 MMOL/L (98-107); CREATININE 1.5 MG/DL (0.55-1.30); POTASSIUM 4.4 MMOL/L (3.5-5.1); SODIUM 142 MMOL/L (136-145)
--- NOTE | 2019-04-26 06:58 | NUR ---
HAND-OFF: Report given to Peter LUJAN RN. PATIENT RESTING IN BED, NO DISTRESS NOTED. FAMILY AT BEDSIDE. DR. CABRERA IS HERE TO SEE PATIENT.
--- NOTE | 2019-04-26 07:00 | NUR ---
NURSE NOTES: Received report from Jannette/RN. Patient is awake and alert; resting comfortably, On 2L nasal cannula. No signs of acute distress/SOB noted; denies pain at this time. AOx 4; able to make needs known. Able to follow commands. Checked right Forearm 22 G; patent, No bleeding, or infiltration noted. Bed at lowest position and locked, siderails up x2. Call light within reach. Will continue plan of care.
--- NOTE | 2019-04-26 07:20 | General Progress Note ---
Assessment/Plan Problem List: (1) CHF (congestive heart failure) ICD Codes: I50.9 - Heart failure, unspecified SNOMED: 47018879 (2) HTN (hypertension) ICD Codes: I10 - Essential (primary) hypertension SNOMED: 99684941 Status: stable, progressing Assessment/Plan: diuresis- monitor renal fxn abx follow up cultures b-blockade digoxin eliquis repeat cxr repeat arthrocentesis doubt septic knee Subjective ROS Limited/Unobtainable: No Constitutional: Reports: malaise, weakness HEENT: Reports: no symptoms Cardiovascular: Reports: no symptoms Respiratory: Reports: SOB with excertion Gastrointestinal/Abdominal: Reports: no symptoms Genitourinary: Reports: no symptoms Neurologic/Psychiatric: Reports: no symptoms Endocrine: Reports: no symptoms Hematologic/Lymphatic: Reports: no symptoms Allergies: Coded Allergies: No Known Allergies (Unverified , 04/17/14) All Systems: reviewed and negative except above Subjective still with right knee pain slightly better. afib rate controlled now. no fevers. on abx. cultures neg. had arthrocentesis but lab lost synovial fluid Objective Last 24 Hour Vital Signs Date Time Temp Pulse Resp B/P (MAP) Pulse Ox O2 Delivery O2 Flow Rate FiO2 04/26/19 04:00 97.7 77 18 99/60 (73) 98 04/26/19 04:00 63 04/26/19 00:00 97.4 70 19 157/54 (88) 100 04/26/19 00:00 69 04/25/19 21:30 86 186/93 04/25/19 21:23 95 Nasal Cannula 2.0 28 04/25/19 21:00 Nasal Cannula 2.0 04/25/19 20:00 97.7 86 19 186/93 (124) 100 04/25/19 20:00 84 04/25/19 19:21 68 168/97 04/25/19 16:00 98.3 80 20 168/97 (120) 94 04/25/19 16:00 68 04/25/19 15:46 168/97 04/25/19 12:00 70 04/25/19 12:00 98.1 63 20 141/94 (110) 95 04/25/19 09:00 Nasal Cannula 2.0 04/25/19 08:30 80 160/87 04/25/19 08:30 80 5/30/19 08:29 160/87 04/25/19 08:00 98.3 80 20 160/87 (111) 94 04/25/19 08:00 78 Intake and Output 04/25/19 04/26/19 19:00 07:00 Intake Total 730 ml 660.000 ml Output Total 1800 ml Balance 730 ml -1140.000 ml Intake Oral 730 ml IV Total 660.000 ml Output Urine Total 1800 ml # Voids 2 5 # Bowel Movements 2 1 Laboratory Tests 04/25/19 22:00: Urine Color Pale yellow, Urine Appearance Clear, Urine pH 6, Urine Specific Bandy 1.005, Urine Protein Negative, Urine Glucose (UA) Negative, Urine Ketones Negative, Urine Blood Negative, Urine Nitrite Negative, Urine Bilirubin Negative, Urine Urobilinogen Normal, Urine Leukocyte Esterase 1+H, Urine RBC 0- 2H, Urine WBC 0-2, Urine Squamous Epithelial Cells Occasional, Urine Bacteria Occasional 04/26/19 05:20: White Blood Count 13.8H, Red Blood Count 5.10, Hemoglobin 10.9L, Hematocrit 36.7L, Mean Corpuscular Volume 72L, Mean Corpuscular Hemoglobin 21.3L, Mean Corpuscular Hemoglobin Concent 29.7L, Red Cell Distribution Width 16.9H, Platelet Count 273, Mean Platelet Volume 7.1, Neutrophils (%) (Auto) 73.7, Lymphocytes (%) (Auto) 14.6L, Monocytes (%) (Auto) 10.6H, Eosinophils (%) (Auto ) 0.1, Basophils (%) (Auto) 1.0, Sodium Level 142, Potassium Level 4.4, Chloride Level 103, Carbon Dioxide Level 37H, Anion Gap 2L, Blood Urea Nitrogen 33H, Creatinine 1.5H, Estimat Glomerular Filtration Rate 47.3, Glucose Level 135H, Calcium Level 9.0, Magnesium Level 1.6L, Total Bilirubin 0.5, Aspartate Amino Transf (AST/SGOT) 33, Alanine Aminotransferase (ALT/SGPT) 16, Alkaline Phosphatase 82, Pro-B-Type Natriuretic Peptide 8039H, Total Protein 7.2, Albumin 2.7L, Globulin 4.5, Albumin/Globulin Ratio 0.6L Height (Feet): 5 Height (Inches): 2.00 Weight (Pounds): 228 Objective General Appearance: WD/WN, alert Neck: supple Cardiovascular: normal rate, regular rhythm Respiratory/Chest: chest wall non-tender, lungs clear, normal breath sounds. no rales Abdomen: normal bowel sounds, non tender, soft, no organomegaly Edema: mild edema. + right knee effusion. 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
[2019-04-26 08:00] VITALS: BP 155/92
--- NOTE | 2019-04-26 08:39 | NUR ---
RADIOLOGY DEPT., LATE ENTRY TWO VIEW CHEST X-RAY COMPLETED 04/25/19 IN DEPT.-P.DYE
--- NOTE | 2019-04-26 09:01 | NUR ---
CASE MANAGEMENT:REVIEW 04/26/19 SI: CHF. RT KNEE EFFUSION 98.1 80 19 155/92 98% ON 2L/NC WBC+13.8 BNP+8039 IS: IV VANCOMYCIN Q8HRS IV ZOSYN Q8HRS COZAAR PO QD DIGOXIN PO QD LOPRESSOR PO Q12 IV LASIX QD PREDNISONE PO QD ELIQUIS PO BID ASA PO QD NORVASC PO QD FLOMAX PO QHS IV MORPHINE Q4HRS PRN : TELEMETRY STATUS DCP: FROM HOME
[2019-04-26] MEDS: Aspirin Baby 81mg ORAL SCH (09:08)
[2019-04-26] MEDS: Eliquis 5mg tablet ORAL SCH ×2 (09:09→18:38)
[2019-04-26] MEDS: Losartan 50mg tab ORAL SCH (09:09)
[2019-04-26] MEDS: Digoxin 0.125mg tab ORAL SCH (09:09)
[2019-04-26 12:00] VITALS: BP 178/87
--- NOTE | 2019-04-26 14:36 | Diagnostic Imaging Report ---
Indication: Dyspnea Comparison: 04/25/2019 A single view chest radiograph was obtained. Findings: Pulmonary vascular prominence with cephalization demonstrated. The heart is enlarged. Right costophrenic angle is blunted. IMPRESSION: Pulmonary vascular congestion/CHF suspected. Right pleural effusion suspected
--- NOTE | 2019-04-26 14:44 | NUR ---
RADIOLOGY DEPT., CHEST X-RAY DONE.-P.DYE
--- NOTE | 2019-04-26 15:49 | Diagnostic Imaging Report ---
Indication: Right knee joint effusion Comparison: None Procedure: After indications, procedure, risks, potential complications and alternatives of the procedure were explained, written informed consent was obtained. The patient was brought to the ultrasound suite and placed upon the gurney. Ultrasound evaluation of the right knee was performed. A site was selected and the skin overlying the area was prepped and draped in standard sterile fashion.1% lidocaine was used anesthetize the skin and subcutaneous tissues. Using ultrasound guidance, 18-gauge needle was advanced into the suprapatellar aspect of the right knee joint and 20 cc of fluid was withdrawn. The fluid was sent to the laboratory for cultures. Specific orders are per referring physician. Images were saved and archived. Patient tolerated the procedure without immediate complication. Impression: Successful right knee arthrocentesis.
[2019-04-26 20:00] VITALS: BP 162/84
--- NOTE | 2019-04-26 20:27 | NUR ---
HAND-OFF: Report given to Zack/RN. Patient in stable condition, no acute distress/SOB noted. Family at bedside. Endorsed plan of care.
[2019-04-26 20:45] LABS: APPEARANCE,URINE CLEAR; BILIRUBIN, URINE NEGATIVE (NEGATIVE); COLOR,URINE PALE YELLOW; GLUCOSE, URINE (UA) NEGATIVE (NEGATIVE); KETONES,URINE NEGATIVE (NEGATIVE); LEUKOCYTE ESTERASE ,URINE NEGATIVE (NEGATIVE); NITRITE,URINE NEGATIVE (NEGATIVE); PH,URINE 6.5 (4.5-8.0); PROTEIN,URINE NEGATIVE (NEGATIVE); UROBILINOGEN,URINE NORMAL MG/DL (0.0-1.0)
[2019-04-26] MEDS ORDERED: Tamsulosin 0.4mg cap ORAL SCH (21:00)
[2019-04-26] MEDS ORDERED: HYDROcodone/Acetamin 10/325 tab ORAL PRN (22:30)
[2019-04-27] VITALS: BP 152/81
[2019-04-27] MEDS: Vancomycin 750mg/NS 275ml IVPB SCH ×4 (02:04→10:52)
[2019-04-27 04:00] VITALS: BP 152/63
--- NOTE | 2019-04-27 04:15 | Progress Note ---
DATE: 04/26/2019 CARDIOLOGY PROGRESS NOTE SUBJECTIVE: Ongoing effect of diuresis. The patient is still with right knee pain. Monitor AFib, but rate controlled. OBJECTIVE: VITAL SIGNS: Blood pressure labile at 99/60 to 157/54, last night 186/93; heart rate 63 to 86; and respiratory rate 18 to 20. LUNGS: Diminished breath sounds. Few rales. CARDIAC: Irregularly irregular rhythm. Normal S1 and S2. ABDOMEN: Soft. EXTREMITIES: Trace edema. LABORATORY DATA: White count 13.8 and hemoglobin 10.9. Potassium 4.4, BUN 33, and creatinine 1.5. Magnesium 1.6. Pro-natriuretic peptide continues to increase, now over 8000. Albumin 2.7. Urinalysis with 0 to 2 white cells. IMPRESSION: 1. Atrial fibrillation, now rate controlled. 2. Acute on chronic diastolic congestive heart failure. 3. Pleural effusion. 4. Hypertensive heart disease with labile blood pressure. 5. Right knee effusion, status post tap. 6. Leukocytosis, on steroids. PLAN: 1. Diuresis. 2. Titration of anti-failure and antihypertensives. 3. Cardioembolic prophylaxis with apixaban. 4. Anti-inflammatory therapy. Naveen Owens M.D. DR: ABBY JOB#: [id number] CC:
[2019-04-27] MEDS: Piperacillin/Tazobactam 3.375 GM in NS 110 ML IVPB SCH (06:16)
--- NOTE | 2019-04-27 07:20 | NUR ---
HAND-OFF: Report given to DARA Albert. Endorsed plan of care.
--- NOTE | 2019-04-27 07:21 | NUR ---
NURSE NOTES: Report received from DARA Dixon. Pt is lying comfortably in semi-fowlers with no signs of distress. A+Ox4, denies pain/SOB. Respirations are even and unlabored on 2 L NC. IV sites patent and saline locked. Bed is at lowest position, brakes engaged, siderails x3, bed alarm on, and call light within reach. Pt is in stable condition; will continue to monitor.
[2019-04-27] MEDS ORDERED: METOPROLOL TAR100 M1 ORAL (07:51)
[2019-04-27] MEDS ORDERED: ELIQUIS5 MG ORAL (07:51)
[2019-04-27] MEDS ORDERED: PANTOPRAZOLE SO40 MG ORAL (07:51)
[2019-04-27] MEDS ORDERED: NORVASC5 MG ORAL (07:51)
[2019-04-27] MEDS ORDERED: COZAAR50 MG ORAL (07:51)
[2019-04-27] MEDS ORDERED: Digoxin ORAL (07:51)
[2019-04-27] MEDS ORDERED: HYDROCODON-ACE1 EA13 ORAL (07:51)
[2019-04-27] MEDS ORDERED: ASPIRIN81 MG ORAL (07:51)
[2019-04-27] MEDS ORDERED: FLOMAX0.4 MG ORAL (07:51)
--- NOTE | 2019-04-27 07:54 | Discharge Instructions ---
Discharge Instructions Discharge Instructions Diet: 2 GM sodium (low sodium), diabetic calorie control, low fat Resume Normal Activity?: No Activity: as tolerated, okay to shower Follow Up Orders follow up with pmd next week. go to er for any chest pain, shortness or breath, blood in the stool or black stool. For Surgical Patients Contact your physician for: bleeding, pain, swelling For Congestive Heart Failure Reminder Report to your physician any weight gain of 5 pounds or more in one week. Chet Saunders MD Apr 27, 2019 07:54
[2019-04-27 08:00] VITALS: BP 150/91
[2019-04-27 08:34] LABS: ALANINE AMINOTRANSFERASE 15 U/L (12-78); ALBUMIN 2.7 G/DL (3.4-5.0); ALBUMIN/GLOBULIN RATIO 0.6 (1.0-2.7); ALKALINE PHOSPHATASE 75 U/L (46-116); ANION GAP 1 mmol/L (5-15); ASPARTATE AMINO TRANSFERASE 33 U/L (15-37); BILIRUBIN,TOTAL 0.7 MG/DL (0.2-1.0); BLOOD UREA NITROGEN 26 mg/dL (7-18); CALCIUM 8.9 MG/DL (8.5-10.1); CARBON DIOXIDE 39 MMOL/L (21-32); CHLORIDE 102 MMOL/L (98-107); CREATININE 1.1 MG/DL (0.55-1.30); POTASSIUM 4.1 MMOL/L (3.5-5.1); SODIUM 142 MMOL/L (136-145)
[2019-04-27] MEDS: Losartan 50mg tab ORAL SCH (09:02)
[2019-04-27] MEDS: Aspirin Baby 81mg ORAL SCH (09:02)
[2019-04-27] MEDS: Eliquis 5mg tablet ORAL SCH (09:05)
[2019-04-27] MEDS: Digoxin 0.125mg tab ORAL SCH (09:06)
--- NOTE | 2019-04-27 10:15 | Discharge Summary ---
DATE OF ADMISSION: 04/18/2019 DATE OF DISCHARGE: 04/27/2019 ADMISSION DIAGNOSES: 1. Abdominal pain. 2. Possible cholecystitis. 3. Atrial fibrillation. 4. Hypertension. 5. Diabetes. 6. Acute renal failure. DISCHARGE DIAGNOSES: 1. Abdominal pain. 2. Possible cholecystitis. 3. Atrial fibrillation. 4. Hypertension. 5. Diabetes. 6. Acute renal failure. HOSPITAL COURSE: The patient is a 63-year-old male with no past medical history. He presented to the ER with complaints of abdominal pain. He had a CAT scan, where there was initially concerned about possible cholecystitis. He was seen by Surgery, was felt not to have cholecystitis. He was noted to be in CHF and atrial fibrillation. He also had acute renal failure with creatinine of 1.5. The patient was admitted to a monitored bed. He was placed on Eliquis for stroke prophylaxis. Beta blockade and digoxin were instituted for rate control. The patient had an echo that showed normal LV function. The patient was gently diuresed. Diuresis was limited by his renal insufficiency. Cultures are all followed up that were negative. The patient had right knee pain. He does have a history of gout. He was started on prednisone. He underwent a tap of the knee, which was not consistent with a septic joint. The patient was initially treated with IV antibiotic therapy because of fevers, but again his Infectious Disease workup was unremarkable. On discharge, the patient was improved. Cardiology did see the patient while in-house. He will be discharged with instructions to follow up with his PMD in a week. He has been started on Eliquis. The risk of bleeding have been discussed with both, him and his daughter. He has been instructed to return or go to the closest ER for any worsening chest pain, shortness of breath, melena, or bright red blood per rectum. DISCHARGE MEDICATIONS: Please see discharge medication list for discharge medications. DIET: Cardiac diabetic diet. ACTIVITIES: Ad-mati. Chet Saunders M.D. DR: RAS JOB#: [id number] CC:
[2019-04-27 12:00] VITALS: BP 115/76
[2019-04-27] MEDS ORDERED: Tubing IV Secondary IV ONE (14:14)
[2019-04-27] MEDS ORDERED: NS 275ml ONE (14:14)
--- NOTE | 2019-04-27 14:14 | NUR ---
NURSE NOTES: Discharge packet prepared for patient. Discussed discharge instructions with patient and patient's children. Prescriptions for new medications given to patient. Patient understands all instructions and has no questions. Patient signed packet and belongings list. He went home with phone, ring, clothes, and money. IV, wristband, and production lead removed. Pt discharged safely from floor via wheelchair to private vehicle with family. Pt was discharged home with self care.
== END 2019-04-27 14:15 | disposition home or self-care (01) | DRG 194 ==
LOC: EMR 12:14 → 4E 14:22 → EDBEDREQ 14:53 → 2E 20:42
PROC: 0S9D3ZX Drainage of Left Knee Joint, Percutaneous Approach, Diagnostic (ICD-10-PCS; principal; 2019-04-22)
PROC: 0S9D3ZX Drainage of Left Knee Joint, Percutaneous Approach, Diagnostic (ICD-10-PCS; 2019-04-26)
DX: I13.0 Hypertensive heart and chronic kidney disease with heart failure and stage 1 through stage 4 chronic kidney disease, or unspecified chronic kidney disease (principal); N17.9 Acute kidney failure, unspecified; I48.91 Unspecified atrial fibrillation; I50.33 Acute on chronic diastolic (congestive) heart failure; N18.9 Chronic kidney disease, unspecified; K44.9 Diaphragmatic hernia without obstruction or gangrene; M25.461 Effusion, right knee; D72.829 Elevated white blood cell count, unspecified; I25.9 Chronic ischemic heart disease, unspecified
CPT/HCPCS: 36415; 71045; 71046; 74177; 76700; 80048; 80053; 80202; 80329; 81003; 82140; 83036; 83690; 83735; 83880; 84443; 84484; 84550; 85007; 85025; 85610; 85651; 85730; 86710; 86850; 86900; 86901; 87040; 87070; 87086; 87205; 89051; 89060; 93306; 96365; 96375; 96376; 99285; J2405; J2765

== ENCOUNTER 2020-01-31 15:52 | Emergency (ER) | payer MEDICAID ==
[~2020-01-31] VITALS: Ht 162.6 cm; Wt 81.6 kg
[~2020-01-31 15:52] MED LIST changes: +ASPIRIN81 MG ORAL; +COZAAR50 MG ORAL; +Digoxin ORAL; +ELIQUIS5 MG ORAL; +FLOMAX0.4 MG ORAL; +HYDROCODON-ACE1 EA13 ORAL; +METOPROLOL TAR100 M1 ORAL; +NORVASC5 MG ORAL; +PANTOPRAZOLE SO40 MG ORAL
[2020-01-31 16:09] VITALS: BP 126/70
--- NOTE | 2020-01-31 16:09 | NUR ---
ED Nurse Note: Patient walked in to ER from home due to constant cough for 4 days. pt aao x4 and ambulatory. calm and cooperative and constantly coughing at this moment. mask provided. diaphoretic and pale but no wound noted. pt denied chest pain. per pt, he recently diagnosed with HLD and Anemia. 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
--- NOTE | 2020-01-31 16:15 | NUR ---
ED Nurse Note: ERMD at bedside.
--- NOTE | 2020-01-31 16:28 | NUR ---
ED Nurse Note: x-ray at bedside.
--- NOTE | 2020-01-31 16:34 | Emergency Room Report ---
History of Present Illness General Chief Complaint: Upper Respiratory Illness Source: Patient, Friend Present Illness HPI Patient presents with 3 days of worsening cough. He has been producing green phlegm. He also complains of shortness of breath and chest tightness. He felt fever and chills last night but did not document temperature. Patient says he gets short of breath now with minimal exertion. He denies pain to the triage nurse. He saw his doctor today who said that he is suffering from anemia and diabetes. The patient does not take insulin. The patient's been admitted to the hospital with "fluid in his body." He does not know a diagnosis of cirrhosis. His abdomen is been distended. He has had brown stools without melena or hematochezia. The patient was admitted March of last year with these discharge diagnoses: 1. Abdominal pain. 2. Possible cholecystitis. 3. Atrial fibrillation. 4. Hypertension. 5. Diabetes. 6. Acute renal failure. Allergies: Coded Allergies: No Known Allergies (Unverified , 04/17/14) Patient History Past Medical History: see triage record Social History: Denies: smoking, alcohol use - prior Social History Narrative From home Reviewed Nursing Documentation: PMH: Agreed; PSxH: Agreed Nursing Documentation-PMH Past Medical History: No History, Except For Hx Cardiac Problems: Yes Hx Hypertension: Yes Hx Gastrointestinal Problems: Yes Review of Systems All Other Systems: negative except mentioned in HPI Physical Exam Vital Signs Date Time Temp Pulse Resp B/P (MAP) Pulse Ox O2 Delivery O2 Flow Rate FiO2 01/31/20 15:55 98.8 78 21 119/66 (83) 92 Room Air Sp02 EP Interpretation: reviewed, normal General Appearance: no apparent distress, GCS 15 Head: normocephalic Eyes: bilateral eye PERRL, bilateral eye EOMI, bilateral eye conjunctivae pale ENT: normal pharynx, moist mucus membranes Neck: supple Respiratory: lungs clear, normal breath sounds, no respiratory distress, other - Some resting tachypnea Cardiovascular #1: regular rate, rhythm, irregularly irregular Cardiovascular #2: 2+ radial (R) Gastrointestinal: normal inspection, non tender, no mass, no guarding, no rebound, decreased bowel sounds, overweight - And somewhat protuberant Genitourinary: no CVA tenderness Musculoskeletal: back normal, normal range of motion, no calf tenderness Neurologic: alert, oriented - X2, grossly normal Psychiatric: mood/affect normal Skin: no rash, warm/dry Medical Decision Making Diagnostic Impression: Primary Impression: RLL pneumonia Qualified Codes: J18.9 - Pneumonia, unspecified organism Additional Impression: CHF (congestive heart failure) Qualified Codes: I50.9 - Heart failure, unspecified ER Course Patient with fever, cough and dyspnea on exertion for 3 days worsening. Differential includes pneumonia, congestive heart failure, acute myocardial infarction, influenza amongst others. Evaluation with EKG, chest x-ray and labs. Patient treated with hydration however holding off on bolus as there is a history of congestive heart failure. EKG atrial fibrillation right axis deviation with nonspecific ST-T wave changes X-ray with right lower lobe fluffiness suggesting infiltrate some reversal of flow and cardiomegaly. Biotics ordered. 1653 Labs significant for elevated BNP, negative lactate, elevated renal function, normal white count. Patient clinically improved on oxygen. Due to the comorbidities patient needs hospitalization. Discussed with Dr. Joe who accepts the patient. Cough. Rales and some exp wheezes. Stop fluids and will give Duoneb. Improved after DuoNeb. Due to the lack of leukocytosis diagnosis of pneumonia more clinical due to productive phlegm and history of fevers. Congestive heart failure a component of dyspnea. Improved with treatment. Still needs further evaluation and treatment in the hospital. Consider echocardiogram. Laboratory Tests Test 01/31/20 16:20 01/31/20 17:00 White Blood Count 8.7 K/UL (4.8-10.8) Red Blood Count 5.18 M/UL (4.70-6.10) Hemoglobin 10.0 G/DL (14.2-18.0) L Hematocrit 33.1 % (42.0-52.0) L Mean Corpuscular Volume 64 FL (80-99) L Mean Corpuscular Hemoglobin 19.3 PG (27.0-31.0) L Mean Corpuscular Hemoglobin Concent 30.2 G/DL (32.0-36.0) L Red Cell Distribution Width 19.4 % (11.6-14.8) H Platelet Count 331 K/UL (150-450) Mean Platelet Volume 7.7 FL (6.5-10.1) Neutrophils (%) (Auto) 63.6 % (45.0-75.0) Lymphocytes (%) (Auto) 16.5 % (20.0-45.0) L Monocytes (%) (Auto) 14.1 % (1.0-10.0) H Eosinophils (%) (Auto) 3.7 % (0.0-3.0) H Basophils (%) (Auto) 2.2 % (0.0-2.0) H Prothrombin Time 12.6 SEC (9.30-11.50) H Prothrombin Time INR 1.2 (0.9-1.1) H Activated Partial Thromboplast Time 30 SEC (23-33) Sodium Level 133 MMOL/L (136-145) L Potassium Level 5.1 MMOL/L (3.5-5.1) Chloride Level 93 MMOL/L (98-107) L Carbon Dioxide Level 28 MMOL/L (21-32) Anion Gap 12 mmol/L (5-15) Blood Urea Nitrogen 39 mg/dL (7-18) H Creatinine 1.5 MG/DL (0.55-1.30) H Estimate Glomerular Filtration Rate 47.1 mL/min (>60) Glucose Level 101 MG/DL (74-106) Lactic Acid Level 1.80 mmol/L (0.4-2.0) Calcium Level 8.9 MG/DL (8.5-10.1) Magnesium Level 2.0 MG/DL (1.8-2.4) Total Bilirubin 0.6 MG/DL (0.2-1.0) Aspartate Amino Transferase (AST) 47 U/L (15-37) H Alanine Aminotransferase (ALT) 12 U/L (12-78) Alkaline Phosphatase 115 U/L (46-116) Total Creatine Kinase 100 U/L (26-308) Troponin I 0.048 ng/mL (0.000-0.056) Pro-B-Type Natriuretic Peptide 2600 pg/mL (0-125) H Total Protein 8.1 G/DL (6.4-8.2) Albumin 3.4 G/DL (3.4-5.0) Globulin 4.7 g/dL Albumin/Globulin Ratio 0.7 (1.0-2.7) L Lipase 209 U/L (73-393) Urine Color Pending Urine Appearance Pending Urine pH Pending Urine Specific [place] Pending Urine Protein Pending Urine Glucose (UA) Pending Urine Ketones Pending Urine Blood Pending Urine Nitrite Pending Urine Bilirubin Pending Urine Urobilinogen Pending Urine Leukocyte Esterase Pending Microbiology Date/Time Source Procedure Growth Status 01/31/20 16:26 Nasal Nares - Final Complete 01/31/20 16:26 Nasal Nares - Final Complete EKG Diagnostic Results Rate: normal Rhythm: other - Atrial fibrillation ST Segments: no acute changes Rhythm Strip Diag. Results EP Interpretation: yes Rhythm: no PVC's, no ectopy, other - Atrial fibrillation Chest X-Ray Diagnostic Results Chest X-Ray Diagnostic Results : Chest X-Ray Ordered: Yes # of Views/Limited/Complete: 1 View Indication: Shortness of Breath EP Interpretation: Yes Interpretation: no effusion, no pneumothorax, other - Right lower lobe process is suggestive of pneumonia Impression: Other Electronically Signed by: Electronically signed by Naveen Daly MD Last Vital Signs Date Time Temp Pulse Resp B/P (MAP) Pulse Ox O2 Delivery O2 Flow Rate FiO2 01/31/20 18:41 98.6 80 19 136/75 96 Room Air 01/31/20 18:11 2.0 28 Status: improved Disposition: XFER SHT-TRM HOSP Condition: Serious Naveen Daly MD Jan 31, 2020 16:34
[2020-01-31 16:45] LABS: BASOPHILS % (AUTO) 2.2 % (0.0-2.0); EOSINOPHILS % (AUTO) 3.7 % (0.0-3.0); HEMATOCRIT 33.1 % (42.0-52.0); LYMPHOCYTES % (AUTO) 16.5 % (20.0-45.0); MEAN CORPUSCULAR VOLUME 64 FL (80-99); MONOCYTES % (AUTO) 14.1 % (1.0-10.0); NEUTROPHILS % (AUTO) 63.6 % (45.0-75.0); PLATELET COUNT 331 K/UL (150-450); RED BLOOD COUNT 5.18 M/UL (4.70-6.10); RED CELL DISTRIBUTION WIDTH 19.4 % (11.6-14.8); WHITE BLOOD COUNT 8.7 K/UL (4.8-10.8)
[2020-01-31 16:51] LABS: ANION GAP 12 mmol/L (5-15); BLOOD UREA NITROGEN 39 mg/dL (7-18); CALCIUM 8.9 MG/DL (8.5-10.1); CARBON DIOXIDE 28 MMOL/L (21-32); CHLORIDE 93 MMOL/L (98-107); CREATININE 1.5 MG/DL (0.55-1.30); POTASSIUM 5.1 MMOL/L (3.5-5.1); SODIUM 133 MMOL/L (136-145)
--- NOTE | 2020-01-31 16:51 | Diagnostic Imaging Report ---
Indication: Cough Technique: One view of the chest Comparison: 04/26/2019 Findings: The heart is enlarged. There is equivocal minimal interstitial congestion, similar to prior exam if real.. Lungs and pleural spaces are clear otherwise. There is improved aeration as compared to prior exam Impression: Cardiomegaly Equivocal minimal interstitial congestion. Correlate with clinical findings
[2020-01-31 16:57] LABS: INR 1.2 (0.9-1.1)
[2020-01-31] MEDS ORDERED: cefTRIAXone 1 GM in NS 55 ML IVPB ONE (17:00)
[2020-01-31 17:06] LABS: ALANINE AMINOTRANSFERASE 12 U/L (12-78); ALBUMIN 3.4 G/DL (3.4-5.0); ALBUMIN/GLOBULIN RATIO 0.7 (1.0-2.7); ALKALINE PHOSPHATASE 115 U/L (46-116); ASPARTATE AMINO TRANSFERASE 47 U/L (15-37); BILIRUBIN,TOTAL 0.6 MG/DL (0.2-1.0); CREATINE KINASE 100 U/L (26-308)
[2020-01-31 17:53] LABS: APPEARANCE,URINE CLEAR; BILIRUBIN, URINE NEGATIVE (NEGATIVE); COLOR,URINE PALE YELLOW; GLUCOSE, URINE (UA) NEGATIVE (NEGATIVE); KETONES,URINE NEGATIVE (NEGATIVE); LEUKOCYTE ESTERASE ,URINE 3+ (NEGATIVE); NITRITE,URINE NEGATIVE (NEGATIVE); PH,URINE 6.5 (4.5-8.0); PROTEIN,URINE NEGATIVE (NEGATIVE); UROBILINOGEN,URINE NORMAL MG/DL (0.0-1.0)
--- NOTE | 2020-01-31 17:57 | NUR ---
ED Nurse Note: called [facility] for report. no answer.
[2020-01-31] MEDS ORDERED: Albuterol/Ipratropium 3ml neb HHN ONE (18:00)
--- NOTE | 2020-01-31 18:03 | NUR ---
ED Nurse Note: called [facility] for report. no answer.
--- NOTE | 2020-01-31 18:37 | NUR ---
ED Nurse Note: report given to DARA Do in [facility].
[2020-01-31 18:41] VITALS: BP 136/75
--- NOTE | 2020-01-31 18:43 | NUR ---
ED Nurse Note: Patient transferred to [facility] by ALS in stable condition.
== END 2020-01-31 16:41 | disposition short-term general hospital (02) ==
LOC: EMR 16:15 → EDBEDREQ 16:17 → EMR 16:41
DX: J18.9 Pneumonia, unspecified organism (principal); I11.0 Hypertensive heart disease with heart failure; I50.9 Heart failure, unspecified; I48.91 Unspecified atrial fibrillation; E11.9 Type 2 diabetes mellitus without complications; Z87.19 Personal history of other diseases of the digestive system
CPT/HCPCS: 36415; 71045; 80053; 81003; 82550; 82962; 83605; 83690; 83735; 83880; 84484; 85025; 85610; 85730; 86710; 86850; 86900; 86901; 87040; 93005; 96361; 96365; 96367; J0696; J1956; J7030; Z7502; 99285; J7620